=== PATIENT | female | born 1935 | race Hispanic/Latino ===

== ENCOUNTER 2017-11-06 09:43 | Emergency (ER) | payer OTHER ==
--- NOTE | 2017-11-06 11:01 | RAD REPORT ---
EXAM DESCRIPTION: CT - Head C Spine Mpr Wo Con - 11/06/2017 10:42 am CLINICAL HISTORY: Head and neck injury status post fall. Head and neck pain COMPARISON: None. TECHNIQUE: Computed axial tomography of the head and cervical spine was obtained. Sagittal and coronal reconstruction was performed. All CT scans are performed using dose optimization technique as appropriate and may include automated exposure control or mA/KV adjustment according to patient size. FINDINGS: A large right parietal scalp hematoma is present without underlying skull fracture. An intracranial bleed is not seen. The ventricles are normal in caliber. An extra-axial fluid collect ion is not noted. The visualized right maxillary sinus is opacified. The mastoids are clear. A cervical fracture is not visualized. No dislocation is noted. Spondylosis of the mid and distal cer vical spine is noted. IMPRESSION: No acute intracranial abnormality is seen. A cervical fracture is not visualized. If the patient continues to have symptoms to suggest intracra nial /spinal cord pathology then MRI would be recommended
--- NOTE | 2017-11-06 11:18 | EDPHYS ---
Physician Documentation [facility] Name: Raya Coleman Age: 81 yrs Sex: Female : 1935 Arrival Date: 11/06/2017 Time: 09:46 Bed 26 Private MD: ED Physician Sae Bernabe HPI: 11/06 10:19 This 81 yrs old Female presents to ER via Ambulatory with complaints of Fall portillo Injury. 10:19 Details of fall: The patient fell from an upright position, while walking. Onset: The portillo symptoms/episode began/occurred just prior to arrival. Associated injuries: The patient sustained injury to the head. Severity of symptoms: At their worst the symptoms were mild, in the emergency department the symptoms are unchanged. The patient has not experienced similar symptoms in the past. Historical: - Allergies: 10:07 NSAIDS; sg - Home Meds: 10:07 acetaminophen 500 mg Oral tab 1 tab every 3 hours [Active]; amlodipine 10 mg tab 1 tab sg once daily [Active]; donepezil 10 mg oral tab 1 tab once daily [Active]; doxazosin 2 mg oral tab 1 tab once daily [Active]; Januvia 50 mg oral tab 1 tabs once daily for Type 2 Diabetes Mellitus [Active]; metoprolol tartrate 50 mg Oral tab 1 tab 2 times per day [Active]; Namenda oral oral [Active]; ramipril 10 mg Oral cap 1 cap once daily for Hypertension [Active]; tramadol 50 mg Oral tab 1 tab every 6 hours [Active]; Vitamin D Oral [Active]; - PMHx: 10:07 Alzheimers; Diabetes - NIDDM; Renal Disease; Hyperlipidemia; GERD; Hypertension; sg - Immunization history:: Adult Immunizations up to date. - Family history:: not pertinent. - Social history:: Smoking status: Patient/guardian denies using tobacco. - Ebola Screening: : Patient negative for fever greater than or equal to 101.5 degrees Fahrenheit, and additional compatible Ebola Virus Disease symptoms Patient denies exposure to infectious person Patient denies travel to an Ebola-affected area in the 21 days before illness onset No symptoms or risks identified at this time. ROS: 10:19 Constitutional: Negative for fever, chills, and weight loss, Eyes: Negative for injury, portillo pain, redness, and discharge, ENT: Negative for injury, pain, and discharge, Neck: Negative for injury, pain, and swelling, Cardiovascular: Negative for chest pain, palpitations, and edema, Respiratory: Negative for shortness of breath, cough, wheezing, and pleuritic chest pain, Abdomen/GI: Negative for abdominal pain, nausea, vomiting, diarrhea, and constipation, Back: Negative for injury and pain, : Negative for injury, bleeding, discharge, and swelling, MS/Extremity: Negative for injury and deformity, Skin: Negative for injury, rash, and discoloration, Psych: Negative for depression, anxiety, suicide ideation, homicidal ideation, and hallucinations, Allergy/Immunology: Negative for hives, rash, and allergies, Endocrine: Negative for neck swelling, polydipsia, polyuria, polyphagia, and marked weight changes, Hematologic/Lymphatic: Negative for swollen nodes, abnormal bleeding, and unusual bruising. 10:19 Neuro: Positive for headache. Exam: 10:19 Constitutional: This is a well developed, well nourished patient who is awake, alert, portillo and in no acute distress. Eyes: Pupils equal round and reactive to light, extra-ocular motions intact. Lids and lashes normal. Conjunctiva and sclera are non-icteric and not injected. Cornea within normal limits. Periorbital areas with no swelling, redness, or edema. ENT: Nares patent. No nasal discharge, no septal abnormalities noted. Tympanic membranes are normal and external auditory canals are clear. Oropharynx with no redness, swelling, or masses, exudates, or evidence of obstruction, uvula midline. Mucous membranes moist. Neck: Trachea midline, no thyromegaly or masses palpated, and no cervical lymphadenopathy. Supple, full range of motion without nuchal rigidity, or vertebral point tenderness. No Meningismus. Chest/axilla: Normal chest wall appearance and motion. Nontender with no deformity. No lesions are appreciated. Cardiovascular: Regular rate and rhythm with a normal S1 and S2. No gallops, murmurs, or rubs. Normal PMI, no JVD. No pulse deficits. Respiratory: Lungs have equal breath sounds bilaterally, clear to auscultation and percussion. No rales, rhonchi or wheezes noted. No increased work of breathing, no retractions or nasal flaring. Abdomen/GI: Soft, non-tender, with normal bowel sounds. No distension or tympany. No guarding or rebound. No evidence of tenderness throughout. Back: No spinal tenderness. No costovertebral tenderness. Full range of motion. Skin: Warm, dry with normal turgor. Normal color with no rashes, no lesions, and no evidence of cellulitis. MS/ Extremity: Pulses equal, no cyanosis. Neurovascular intact. Full, normal range of motion. Neuro: Awake and alert, GCS 15, oriented to person, place, time, and situation. Cranial nerves II-XII grossly intact. Motor strength 5/5 in all extremities. Sensory grossly intact. Cerebellar exam normal. Normal gait. Psych: Awake, alert, with orientation to person, place and time. Behavior, mood, and affect are within normal limits. 10:19 Head/face: Noted is hematoma, that is moderate, of the right occipital area. Vital Signs: 09:53 BP 166 / 82; Pulse 79; Resp 16; Temp 97.8; Pulse Ox 100% on R/A; Pain 6/10; sg [place] Coma Score: 09:53 Eye Response: spontaneous(4). Verbal Response: oriented(5). Motor Response: obeys sg commands(6). Total: 15. Trauma Score (Adult): 09:53 Eye Response: spontaneous(1); Verbal Response: oriented(1); Motor Response: obeys sg commands(2); Systolic BP: > 89 mm Hg(4); Respiratory Rate: 10 to 29 per min(4); Bruce Score: 15; Trauma Score: 12 MDM: 10:13 Patient medically screened. [facility] 10:21 Data reviewed: vital signs, nurses notes, radiologic studies, CT scan. [facility] 11/06 10:19 Order name: CT Head C Spine; Complete Time: 11:16 [facility] 11/06 10:19 Order name: Ice pack; Complete Time: 10:22 [facility] Administered Medications: No medications were administered Disposition: 11/06/17 11:17 Discharged to Home. Impression: Fall due to bumping against object, Superficial injury of head, Type 2 diabetes mellitus. - Condition is Stable. - Discharge Instructions: Head Injury, Adult, Hematoma, Hematoma, [id number]-xl-Mspa, Fall Prevention in the Home, Fall Prevention in the Home, [id number], Head Injury, Adult, Wqza-bg-Udpo. - Medication Reconciliation Form, Thank You Letter, Antibiotic Education, Prescription Opioid Use form. - Follow up: Private Physician; When: 2 - 3 days; Reason: Recheck today's complaints, Continuance of care, Re-evaluation by your physician. - Problem is new. - Symptoms have improved. Signatures: Dispatcher [employer] EDRigo Mera RN RN Sae Fu MD MD cha Williams, Irene, RN RN iw Corrections: (The following items were deleted from the chart) 11:18 11:17 11/06/2017 11:17 Discharged to Home. Impression: Fall due to bumping against portillo object; Superficial injury of head. Condition is Stable. Discharge Instructions: Head Injury, Adult, Hematoma, Hematoma, Very-iv-Gzrv, Fall Prevention in the Home, Fall Prevention in the Home, Htzx-rq-Eyvu, Head Injury, Adult, Euku-xq-Dbsg. Forms are Medication Reconciliation Form, Thank You Letter, Antibiotic Education, Prescription Opioid Use. Follow up: Private Physician; When: 2 - 3 days; Reason: Recheck today's complaints, Continuance of care, Re-evaluation by your physician. Problem is new. Symptoms have improved. [facility] 12:19 11:18 11/06/2017 11:17 Discharged to Home. Impression: Fall due to bumping against iw object; Superficial injury of head; Type 2 diabetes mellitus. Condition is Stable. Discharge Instructions: Head Injury, Adult, Hematoma, Hematoma, Xmla-iu-Oouk, Fall Prevention in the Home, Fall Prevention in the Home, Mwap-ig-Fwwb, Head Injury, Adult, Hkmn-so-Zzeo. Forms are Medication Reconciliation Form, Thank You Letter, Antibiotic Education, Prescription Opioid Use. Follow up: Private Physician; When: 2 - 3 days; Reason: Recheck today's complaints, Continuance of care, Re-evaluation by your physician. Problem is new. Symptoms have improved. portillo
--- NOTE | 2017-11-06 11:18 | ER ---
Nurse's Notes [facility] Name: Raya Coleman Age: 81 yrs Sex: Female : 1935 Arrival Date: 11/06/2017 Time: 09:46 Bed 26 Private MD: Diagnosis: Fall due to bumping against object;Superficial injury of head;Type 2 diabetes mellitus Presentation: 11/06 09:51 Presenting complaint: EMS states: pt was seated in her walker, pushing herself backward sg to move back inside the retirement, pt hit a crack in the sidewalk and was thrown backward hitting her head on the concrete, a hematoma is noted to the back of the pt head, pt witnessed fall, did not loose consciousness, denies dizzyness, N/V/D, reports pain to back of head. Care prior to arrival: Cervical collar in place. Placed on backboard. Mechanism of Injury: Fall out of chair. Trauma event details: Injury occurred in the [facility], Injury occurred: [facility], [place] Injury occurred: November 06, 2017. 09:51 Method Of Arrival: Ambulatory sg 09:51 Acuity: OUMAR 4 sg 12:18 Transition of care: patient was received from another setting of care (long-term care facility), [facility]. Onset of symptoms was November 06, 2017. Risk Assessment: Do you want to hurt yourself or someone else? Patient reports no desire to harm self or others. Initial Sepsis Screen: Does the patient meet any 2 criteria? No. Patient's initial sepsis screen is negative. Does the patient have a suspected source of infection? No. Patient's initial sepsis screen is negative. Triage Assessment: 12:19 General: Appears in no apparent distress. Behavior is calm, cooperative. iw Trauma Activation: Not Applicable Physician: ED Physician; Name: ; Notified At: ; Arrived At: Physician: General Surgeon; Name: ; Notified At: ; Arrived At: Physician: Radiology; Name: ; Notified At: ; Arrived At: Physician: Respiratory; Name: ; Notified At: ; Arrived At: Physician: Lab; Name: ; Notified At: ; Arrived At: Historical: - Allergies: 10:07 NSAIDS; sg - Home Meds: 10:07 acetaminophen 500 mg Oral tab 1 tab every 3 hours [Active]; amlodipine 10 mg tab 1 tab sg once daily [Active]; donepezil 10 mg oral tab 1 tab once daily [Active]; doxazosin 2 mg oral tab 1 tab once daily [Active]; Januvia 50 mg oral tab 1 tabs once daily for Type 2 Diabetes Mellitus [Active]; metoprolol tartrate 50 mg Oral tab 1 tab 2 times per day [Active]; Namenda oral oral [Active]; ramipril 10 mg Oral cap 1 cap once daily for Hypertension [Active]; tramadol 50 mg Oral tab 1 tab every 6 hours [Active]; Vitamin D Oral [Active]; - PMHx: 10:07 Alzheimers; Diabetes - NIDDM; Renal Disease; Hyperlipidemia; GERD; Hypertension; sg - Immunization history:: Adult Immunizations up to date. - Family history:: not pertinent. - Social history:: Smoking status: Patient/guardian denies using tobacco. - Ebola Screening: : Patient negative for fever greater than or equal to 101.5 degrees Fahrenheit, and additional compatible Ebola Virus Disease symptoms Patient denies exposure to infectious person Patient denies travel to an Ebola-affected area in the 21 days before illness onset No symptoms or risks identified at this time. Screenin:30 Abuse screen: Denies threats or abuse. Denies injuries from another. Nutritional iw screening: No deficits noted. Tuberculosis screening: No symptoms or risk factors identified. Fall Risk Fall in past 12 months (25 points). Assessment: 11:29 Reassessment: Patient appears in no apparent distress at this time. Patient and/or iw family updated on plan of care and expected duration. Pain level reassessed. Patient states feeling better. Patient states symptoms have improved. 11:32 Reassessment: report called to [facility], will arrange for iw transportation back to facility. Vital Signs: 09:53 BP 166 / 82; Pulse 79; Resp 16; Temp 97.8; Pulse Ox 100% on R/A; Pain 6/10; sg [place] Coma Score: 09:53 Eye Response: spontaneous(4). Verbal Response: oriented(5). Motor Response: obeys sg commands(6). Total: 15. Trauma Score (Adult): 09:53 Eye Response: spontaneous(1); Verbal Response: oriented(1); Motor Response: obeys sg commands(2); Systolic BP: > 89 mm Hg(4); Respiratory Rate: 10 to 29 per min(4); Bruce Score: 15; Trauma Score: 12 ED Course: 09:46 Patient arrived in ED. iw 09:51 Rigo Mills, RN is Primary Nurse. sg 09:53 Triage completed. sg 10:13 Sae Bernabe MD is Attending Physician. portillo 10:[address] via stretcher. sw 10:41 CT completed. Patient tolerated procedure well. Patient moved to CT via stretcher. jg6 Patient moved back from CT. 10:42 CT Head C Spine In Process Unspecified. EDMS 11:30 No provider procedures requiring assistance completed. Patient did not have IV access iw during this emergency room visit. 11:31 Patient has correct armband on for positive identification. iw Administered Medications: No medications were administered Intake: 09:53 PO: 0ml; Total: 0ml. sg Outcome: 11:17 Discharge ordered by . portillo 12:18 Discharged to retirement. Report called to [place] Transfer form completed. iw 12:18 Condition: good 12:18 Discharge instructions given to family, retirement, senior scrum master, Instructed on discharge instructions, follow up and referral plans. Demonstrated understanding of instructions, follow-up care. 12:19 Patient left the ED. iw Signatures: Dispatcher [employer] EDRigo Mera, Sae Hernandez RN, MD MD cha Williams, Irene RN RN Sadaf Chang Jessica [email or web address] Corrections: (The following items were deleted from the chart) 09:54 09:51 Care prior to arrival: None. sg sg
[2017-11-06 12:24] VITALS: BP 166/82; TEMP 97.8; O2SAT 100
== END 2017-11-06 12:19 | disposition home or self-care (01) ==
LOC: ER 09:43
DX: S00.90XA Unspecified superficial injury of unspecified part of head, initial encounter (principal); E11.9 Type 2 diabetes mellitus without complications; W18.00XA Striking against unspecified object with subsequent fall, initial encounter; Y93.01 Activity, walking, marching and hiking; Y92.9 Unspecified place or not applicable; Z88.6 Allergy status to analgesic agent; Z79.4 Long term (current) use of insulin; I10 Essential (primary) hypertension; E78.5 Hyperlipidemia, unspecified; N28.9 Disorder of kidney and ureter, unspecified; G30.9 Alzheimer's disease, unspecified; F02.80 Dementia in other diseases classified elsewhere, unspecified severity, without behavioral disturbance, psychotic disturbance, mood disturbance, and anxiety
CPT/HCPCS: 70450; 72125; 99284

== ENCOUNTER 2018-03-01 16:54 | Inpatient (IN) | payer OTHER ==
[2018-03-01] MEDS: LEVALBUTEROL 0.63 MG/3 ML NEB NEB PRN ×3 (17:43→23:00)
--- NOTE | 2018-03-01 17:51 | P.HP ---
Certification for Inpatient Patient admitted to: Inpatient With expected LOS: >2 Midnights Patient will require the following post-hospital care: Prison Practitioner: I am a practitioner with admitting privileges, knowledge of patient current condition, hospital course, and medical plan of care. Services: Services provided to patient in accordance with Admission requirements found in Title 42 Section 412.3 of the Code of Federal Regulations Patient History Date of Service: 03/01/18 Primary Care Provider: Dameon Reason for admission: Bronchitis History of Present Illness: Patient is a resident of [place]. She has a history of dementia. The patient has been having a cough for a week. She has post nasal drip and non productive cough. She has a minimal basal infiltrate 2 days ago. Was treating her with decongestants and breathing treatments. She worsened. Family wanted her to go the ER. However we directed admitted her. She is maintaining her oxygen level. However is using accessory muscles. States she is now bringing up sputum Allergies No Known Allergies Allergy (Unverified 06/17/11 12:33) Home Medications: Amlodipine Besylate 10 mg PO DAILY 06/17/11 Clonazepam [Klonopin] 0.5 mg PO PRN PRN 06/17/11 Divalproex [Depakote Sprinkle] 125 mg PO BID 06/17/11 Donepezil HCl 10 mg PO DAILY 06/17/11 Fexofenadine HCl [Laura Allergy] 180 mg PO DAILY 06/17/11 Gemfibrozil 600 mg PO BID 06/17/11 Gemfibrozil 600 mg PO DAILY 06/17/11 Memantine HCl [Namenda] 10 mg PO BID 06/17/11 Potassium Chloride [Klor-Con] 20 meq PO DAILY 06/17/11 - Past Medical/Surgical History Diabetic: No - Social History Alcohol use: No CD- Drugs: No Caffeine use: No Review of Systems Respiratory: Cough, SOB with Excertion, Pleuritic Pain Physical Examination - Physical Exam General: Alert, Acute distress HEENT: Atraumatic, PERRLA, Mucous membr. moist/pink, EOMI, Sclerae nonicteric Neck: Supple, 2+ carotid pulse no bruit, No LAD, Without JVD or thyroid abnormality Respiratory: Diminished, Expiratory wheezes Cardiovascular: Regular rate/rhythm, Normal S1 S2 Gastrointestinal: Normal bowel sounds, No tenderness Musculoskeletal: No tenderness Integumentary: No rashes Neurological: Normal gait, Normal speech, Normal strength at 5/5 x4 extr, Normal tone, Normal affect Lymphatics: No axilla or inguinal lymphadenopathy Assessment and Plan - Problems (Diagnosis) (1) Acute bronchitis Current Visit: Yes Status: Acute Plan: will check a chest xray and blood cultures. She is currently afebrile. Will start her on steroids and breathing treatments. Check cxr, procalcitionin and blood cultures. We can decide to continue or stop levaquin Qualifiers: Bronchitis organism: unspecified organism Qualified Code(s): J20.9 - Acute bronchitis, unspecified (2) Dementia Current Visit: Yes Status: Acute Plan: Patient is able to converse and perform all her adl's. Will keep her on fall precautions. Consult PT in the morning Qualifiers: Dementia type: Alzheimer's disease (3) HTN (hypertension) Current Visit: Yes Status: Acute Plan: restart her amlodipine in the morning Discharge Plan: Residential Plan to discharge in: 48 Hours - Advance Directives Does patient have a Living Will: No Does patient have a Durable POA for Healthcare: No - Code Status/Comfort Care Code Status Assessed: Yes Code Status: Full Code Physician Review: Patient Assessed, Agree with Above Assessment and Plan Critical Care: No Time Spent Managing Pts Care (In Minutes): 50
[2018-03-01] MEDS: METHYLPREDNISOLONE 40 MG INJ IV SCH (17:53)
[2018-03-01] MEDS: NA CHLORIDE 0.9% 1,000 ML IV SCH (18:07)
[2018-03-01] MEDS: Levofloxacin500mg IV 500 MG/100 ML BAG IV SCH (18:10)
[2018-03-01] MEDS ORDERED: LORazepam 2 MG/ML VIAL IV PRN ×2 (18:15→18:28)
[2018-03-01] MEDS ORDERED: ACETYLCYST 20% 4 ML VIAL IH SCH (18:30)
[2018-03-01 18:31] LABS: Potassium 4.6 mmol/L (3.5-5.1)
[2018-03-01 18:54] LABS: Troponin I 39.7 ng/mL (0.0-0.045)
[2018-03-01] MEDS ORDERED: PNEUMOCOCCAL VACCINE 0.5 ML IMVAC ONE (19:00)
[2018-03-01] MEDS ORDERED: D50W 25 GM/50 ML SYRINGE IV PRN (19:48)
[2018-03-01] MEDS ORDERED: GLUCAGON 1 MG/VIAL IM PRN (19:48)
--- NOTE | 2018-03-01 20:28 | RAD REPORT ---
EXAM DESCRIPTION: Martín Single View03/01/2018 8:22 pm CLINICAL HISTORY: Chest pain COMPARISON: 2011 FINDINGS: [id number] bilateral pulmonary opacities are present. The heart is mildly enlarged IMPRESSION: CHF
[2018-03-01 20:42] LABS: Absolute Lymphocytes (CBC) 0.2 K/uL (0.7-4.9); Absolute Monocytes 0.5 K/uL (0.1-1.3); Absolute Neutrophil 10.4 K/uL (1.8-8.0); Basophils % 0.7 % (0-1.3); Eosinophils % 0.3 % (0-4.4); Hematocrit 27.1 % (36.0-45.0); Lymphocytes % 1.6 % (15.3-44.8); Monocytes % 4.3 % (3.3-12.3); RBC Red Blood Cell Count 3.04 M/uL (3.86-4.86)
[2018-03-01] MEDS ORDERED: ENOXAPARIN 30 MG/0.3 ML SQ SCH (21:00)
[2018-03-01] MEDS: ENOXAPARIN 80 MG/0.8 ML SQ SCH (22:13)
[2018-03-01] MEDS: INSULIN -REGULAR HUMAN 50 UNIT/0.5 ML ML SQ SCH (22:13)
[2018-03-01] MEDS: MEMANTINE HCL 10 MG TABLET PO SCH (22:14)
[2018-03-01] MEDS: DONEPEZIL HCL 5 MG TAB PO SCH (22:14)
[2018-03-01] MEDS: DIVALPROEX NA 125 MG CAP PO SCH (22:14)
[2018-03-01 22:19] LABS: Platelet Estimate ADEQ; Urine White Blood Cell Casts OK
[2018-03-01 22:20] LABS: Blood Morphology Comment NOT SEEN (NOT SEEN)
[2018-03-02] MEDS: METHYLPREDNISOLONE 40 MG INJ IV SCH ×3 (00:42→17:56)
[2018-03-02] MEDS: PANTOPRAZOLE 40MG TABLET PO SCH (05:42)
[2018-03-02] MEDS: NA CHLORIDE 0.9% 1,000 ML IV SCH (05:42)
[2018-03-02 06:04] LABS: Absolute Lymphocytes (CBC) 0.2 K/uL (0.7-4.9); Absolute Monocytes 0.1 K/uL (0.1-1.3); Basophils % 0.1 % (0-1.3); Hematocrit 25.9 % (36.0-45.0); Lymphocytes % 1.7 % (15.3-44.8); MPV 8.3 fL (7.6-11.3); Monocytes % 0.9 % (3.3-12.3); RBC Red Blood Cell Count 2.94 M/uL (3.86-4.86)
--- NOTE | 2018-03-02 07:01 | EKG ---
Test Date: 2018-03-01 Test Time: 17:35:25 [employer]ined Parts Quality Inspector: LOULOU MEASUREMENT RESULTS: Intervals: Rate: 104 NV: 130 QRSD: 82 QT: 330 QTc: 433 [place]: P: 48 NV: 130 QRS: 5 T: 65 INTERPRETIVE STATEMENTS: Sinus tachycardia Septal infarct, age undetermined Abnormal ECG Compared to ECG 06/17/2011 11:57:17 Myocardial infarct finding now present Sinus rhythm no longer present Incomplete right bundle-branch block no longer present Electronically Signed On 03-02-18 06:52:13 TIMBER ROBBER by Ehsan Bettencourt
[2018-03-02] MEDS: LEVALBUTEROL 0.63 MG/3 ML NEB NEB PRN ×2 (07:24→12:53)
[2018-03-02 07:58] LABS: Albumin 2.4 g/dL (3.4-5.0); Bilirubin Total 0.3 mg/dL (0.2-1.0); Potassium 4.8 mmol/L (3.5-5.1); Protein, Total 7.3 g/dL (6.4-8.2)
[2018-03-02 08:00] LABS: Troponin I 33.4 ng/mL (0.0-0.045)
[2018-03-02] MEDS ORDERED: GLUCAGON 1 MG/VIAL IM PRN (08:40)
[2018-03-02] MEDS ORDERED: D50W 25 GM/50 ML SYRINGE IV PRN (08:40)
[2018-03-02] MEDS ORDERED: INSULIN GLARGINE 100 UNITS/ML SQ SCH (08:41)
[2018-03-02] MEDS: INSULIN -REGULAR HUMAN 50 UNIT/0.5 ML ML SQ SCH ×4 (09:00→20:20)
[2018-03-02] MEDS: POTASSIUM CL SA 10 MEQ TAB PO SCH (09:00)
[2018-03-02] MEDS: ENOXAPARIN 80 MG/0.8 ML SQ SCH (10:10)
[2018-03-02] MEDS: ASPIRIN 325 MG TAB PO SCH (10:13)
[2018-03-02] MEDS: MEMANTINE HCL 10 MG TABLET PO SCH ×2 (10:13→20:18)
[2018-03-02] MEDS: DIVALPROEX NA 125 MG CAP PO SCH ×2 (10:13→20:19)
[2018-03-02] MEDS: AMLODIPINE 10 MG TAB PO SCH (10:13)
[2018-03-02] MEDS: ISOSORBIDE MONO SR 30 MG TAB PO SCH (10:13)
[2018-03-02] MEDS: INSULIN GLARGINE 100 UNITS/ML SQ SCH (10:33)
--- NOTE | 2018-03-02 10:47 | P.PN ---
Subjective Date of Service: 03/02/18 Primary Care Provider: Dameon Chief Complaint: Bronchitis Subjective: Improving Review of Systems Respiratory: Cough, SOB with Excertion Physical Examination - Vital Signs Temperature: 98.0 F Blood Pressure: 155/82 Pulse: 95 Respirations: 18 Pulse Ox (%): 96 - Physical Exam General: Alert, In no apparent distress HEENT: Atraumatic, PERRLA, EOMI Neck: Supple, JVD not distended Respiratory: Diminished, Expiratory wheezes Cardiovascular: Regular rate/rhythm, Normal S1 S2 Gastrointestinal: Normal bowel sounds, No tenderness Musculoskeletal: No tenderness Integumentary: No rashes Neurological: Normal speech, Normal tone, Normal affect Lymphatics: No axilla or inguinal lymphadenopathy - Studies Laboratory Data (last 24 hrs) 03/02/18 07:00: Sodium 144, Potassium 4.8, BUN 36 H, Creatinine 2.50 H, Glucose 235 H, Total Bilirubin 0.3, AST 41 H, ALT 31, Alkaline Phosphatase 96, Troponin I 33.40 H* D 03/02/18 05:40: Sodium Cancelled, Potassium Cancelled, BUN Cancelled, Creatinine Cancelled, Glucose Cancelled, Total Bilirubin Cancelled, AST Cancelled, ALT Cancelled, Alkaline Phosphatase Cancelled 03/02/18 05:40: WBC 10.3, Hgb 8.8 L, Hct 25.9 L, Plt Count 336 03/02/18 00:25: Troponin I 37.20 H* D 03/01/18 19:53: WBC 11.2 H, Hgb 8.9 L, Hct 27.1 L, Plt Count 342 03/01/18 17:54: Sodium 142, Potassium 4.6, BUN 33 H, Creatinine 2.60 H, Glucose 200 H, Troponin I 39.70 H* Microbiology Data (last 24 hrs): 03/01/18 20:26 Nasopharnyx Influenza Type A Antigen Screen - Final 03/01/18 20:26 Nasopharnyx Influenza Type B Antigen Screen - Final Assessment & Plan - Problems (Diagnosis) (1) Acute bronchitis Onset Date: 03/02/18 Current Visit: Yes Status: Acute Plan: will check a chest xray and blood cultures. She is currently afebrile. Will start her on steroids and breathing treatments. Check cxr, procalcitionin and blood cultures. We can decide to continue or stop levaquin Qualifiers: Bronchitis organism: unspecified organism Qualified Code(s): J20.9 - Acute bronchitis, unspecified (2) Dementia Onset Date: 03/02/18 Current Visit: Yes Status: Acute Plan: Patient is able to converse and perform all her adl's. Will keep her on fall precautions. Consult PT in the morning Qualifiers: Dementia type: Alzheimer's disease (3) HTN (hypertension) Onset Date: 03/02/18 Current Visit: Yes Status: Acute Plan: restart her amlodipine in the morning. better control. However will add imdur Qualifiers: Hypertension type: essential hypertension Qualified Code(s): I10 - Essential (primary) hypertension (4) Acute on chronic renal failure Current Visit: Yes Status: Acute Plan: Consult To Dr. Carreno Qualifiers: Chronic kidney disease stage: stage 4 (severe) (5) Diabetes 1.5, managed as type 2 Current Visit: Yes Status: Acute Plan: will keep her on insulin sliding scale. Add levemir 10units. will adjust as necessary Discharge Plan: Longterm Plan to discharge in: Greater than 2 days - Code Status/Comfort Care Code Status Assessed: No Code Status: Full Code Physician Review: Patient Assessed, Agree with Above Assessment and Plan Critical Care: No Time Spent Managing Pts Care (In Minutes): 40
--- NOTE | 2018-03-02 12:22 | CON ---
Date of Consultation: 03/02/2018 Reason For Consultation: Elevated troponin. History Of Present Illness: Ms. Coleman is an 82-year-old woman, has a history of hypertension, chron ic renal insufficiency, seizure disorders, hypertriglyceridemia, and Alzheimer's. She came in with c ough, PND, orthopnea that have been going on for approximately 10 days. She came in initially hypoxi c requiring BiPAP, now she is on oxygen nasal cannula with an O2 saturation of 99%. She has been sury ing and is receiving right now inhalers as well as steroid therapy, but no diuretics. She was noted to have a troponin of 39.7. Her white count was 11, her creatinine was 2.6, glucose was 244. Her est x-ray showed congestive heart failure. Past Medical History: Stated earlier. Allergies: NONE. Review of Systems: Negative. Social History: Negative. Family History: Noncontributory. Medications: At home include Norvasc, Klonopin, Depakote, potassium, Lopid, and Namenda. Physical Examination: General: She is very pleasant, alert and oriented x3. No acute distress. Still coughing, nonproduc tive. HEENT: Negative. Neck: Supple without any bruit, lymphadenopathy, or JVD. Chest: Revealed diffuse wheezing on inspiration and expiration as well as rales at the bases. Cardiac: Reveals tachycardia without any murmurs, gallops, or rubs. Abdomen: Benign. Extremities: Revealed no clubbing, cyanosis, or edema. Diagnostic Data: Stated earlier. Her EKG is nonspecific. Impression And Plan: 1.Elevated troponin, possibly secondary to hypoxia and renal insufficiency. 2.Renal insufficiency, stage IV. 3.Elevated white count. 4.Elevated blood glucose level. 5.Possible congestive heart failure. An echocardiogram is pending. I agree with her present regime n, although I will probably add low-dose diuretic to her regimen. 6.Her other problems include Alzheimer's, seizures, hypertriglyceridemia, and hypertension, all of w hich are stable at this point. We will see what the echocardiogram shows prior to making final decis ions. It would be reasonable to do an outpatient Lexiscan eventually. DEBBIE/RAYA Voice ID: [id number] Report ID: [id number]
[2018-03-02] MEDS: NACHLORIDE 0.45% 1,000 ML IV SCH (12:49)
[2018-03-02] MEDS ORDERED: MORPHINE 2 MG/ML SYR IV ONE (13:20)
--- NOTE | 2018-03-02 17:04 | CON ---
Date of Consultation: 03/02/2018 Reason For Consult: Chronic renal insufficiency. History Of Present Illness: Ms. Coleman is 82-year-old female with past medical history significant f or history of dementia, chronic CKD stage 4 to stage 5, hypertension, who presented to [facility] as a direct admission for ongoing pneumonia, productive cough, and she is being treated f or bronchitis. The patient has been seeing Dr. Pearce for evaluation of her chronic kidney disease and she was found to have some worsening of her renal failure recently secondary to uncontrolled hype rtension. We are being consulted for evaluation of her CKD stage 4. Past Medical History: Significant for history of chronic kidney disease stage 4, proteinuria seconda ry to kidney disease, hypokalemia, history of type 2 diabetes with CKD, hypertriglyceridemia, Alzheim er's dementia, vitamin D deficiency, GERD, chronic intermittent diarrhea. Past Surgical History: Significant for history of hysterectomy. Home Medications: Have been reviewed. Family History: Noncontributory at this time. Review of Systems: Positive for some weakness and lethargy. Otherwise, denies any other complaints. Her shortness of b reath is improving at this time and her lethargy is also improving slowly. Physical Examination: Vital signs: At this time are showing temperature of 98, pulse rate of 95, respiratory rate of 18, b lood pressure 155/82. General: She appears in no acute distress. HEENT: Atraumatic head. Lungs: Auscultation of the lungs revealed bilateral wheezes occasionally. No crackles were noted. Heart: Auscultation of the heart revealed regular rate and rhythm. Extremities: Did not reveal any evidence of edema. Abdomen: Soft and nontender. Laboratory Data: At this time, showing creatinine of 2.5, BUN of 36, sodium of 144. Upon review of past records, the patient seems to have a baseline creatinine of around 2.4 with upon blood work done from last month. Current Medications: Include amlodipine 10 mg a day, aspirin, Depakote 125 mg b.i.d., Aricept at bed time, Lovenox 70 mg subcutaneously daily, isosorbide, Levaquin every 24 hours, lorazepam, Solu-Medrol 40 mg every 8 hours, normal saline at 75 cc an hour, and a potassium chloride 20 mEq a day. Impression: 1.Chronic renal insufficiency, stage 4 secondary to underlying hypertension and type 2 diabetes. Th e patient's renal function seems to be at baseline at this time. We will go ahead and order some gen tle IV hydration with half NS to prevent further volume overload and monitor her renal function close ly. 2.Acute bronchitis/pneumonia. The patient is being treated with IV steroids as well as antibiotics. Renal steroids as tolerated as high-dose steroids can lead to worsening of her renal failure and BU N. We will continue to monitor at this time. 3.Elevated troponins. The patient is being evaluated by Cardiology. She is being treated conservat ively at this time because of her multiple issues and advanced age. 4.Underlying Alzheimer's dementia, currently stable. 5.Chronic anemia related to chronic kidney disease. Currently, hemoglobin and hematocrit are stable at this time. Monitor and we will order iron panel and may need IV iron with Epogen if it continues to drop. Plan: Overall, patient's renal function is at baseline at this time. We will continue gentle IV hyd ration. Monitor her renal function. We will order iron panel because she is being treated with IV s teroids for her bronchitis, which needs to be tapered down as tolerated quickly and she is being diamond wisam conservatively for her increased troponins as well. The plan will be discussed with Dr. Xiao in detail. Please do not hesitate to call us with any questions or concerns. VINCE/RAYA Voice ID: [id number] Report ID: [id number]
[2018-03-02] MEDS: Levofloxacin500mg IV 500 MG/100 ML BAG IV SCH (17:56)
--- NOTE | 2018-03-02 18:06 | EKG ---
Test Date: 2018-03-02 Test Time: 12:21:17 [employer]or: KAITLIN MEASUREMENT RESULTS: Intervals: Rate: 115 MI: 136 QRSD: 86 QT: 336 QTc: 464 [place]: P: 65 MI: 136 QRS: 10 T: 107 INTERPRETIVE STATEMENTS: Sinus tachycardia Septal infarct, age undetermined Marked ST abnormality, possible inferior subendocardial injury Abnormal ECG Compared to ECG 03/01/2018 17:35:25 ST (T wave) deviation now present Myocardial infarct finding still present Electronically Signed On 03-02-18 18:04:47 BUSINESS CENTER ATTENDANT by Ehsan Bettencourt
[2018-03-02] MEDS: DONEPEZIL HCL 5 MG TAB PO SCH (20:24)
[2018-03-03] MEDS: METHYLPREDNISOLONE 40 MG INJ IV SCH ×2 (00:06→08:30)
[2018-03-03] MEDS: NACHLORIDE 0.45% 1,000 ML IV SCH ×2 (05:54→08:34)
[2018-03-03] MEDS: PANTOPRAZOLE 40MG TABLET PO SCH (05:54)
[2018-03-03 05:57] LABS: Absolute Lymphocytes (CBC) 0.2 K/uL (0.7-4.9); Absolute Monocytes 0.3 K/uL (0.1-1.3); Absolute Neutrophil 13.1 K/uL (1.8-8.0); Basophils % 0.1 % (0-1.3); Hematocrit 25.7 % (36.0-45.0); Lymphocytes % 1.4 % (15.3-44.8); MPV 7.9 fL (7.6-11.3); RBC Red Blood Cell Count 2.91 M/uL (3.86-4.86)
[2018-03-03 06:30] LABS: Albumin 2.4 g/dL (3.4-5.0); Bilirubin Total 0.1 mg/dL (0.2-1.0); Potassium 4.9 mmol/L (3.5-5.1); Protein, Total 6.9 g/dL (6.4-8.2)
[2018-03-03] MEDS: INSULIN GLARGINE 100 UNITS/ML SQ SCH ×2 (08:00→12:55)
[2018-03-03] MEDS: AMLODIPINE 10 MG TAB PO SCH (08:30)
[2018-03-03] MEDS: ASPIRIN 325 MG TAB PO SCH (08:30)
[2018-03-03] MEDS: ENOXAPARIN 80 MG/0.8 ML SQ SCH (08:30)
[2018-03-03] MEDS: DIVALPROEX NA 125 MG CAP PO SCH ×2 (08:30→21:29)
[2018-03-03] MEDS: ISOSORBIDE MONO SR 30 MG TAB PO SCH (08:31)
[2018-03-03] MEDS: MEMANTINE HCL 10 MG TABLET PO SCH ×2 (08:32→21:29)
[2018-03-03] MEDS: POTASSIUM CL SA 10 MEQ TAB PO SCH (08:32)
[2018-03-03] MEDS: INSULIN -REGULAR HUMAN 50 UNIT/0.5 ML ML SQ SCH ×4 (08:32→21:00)
--- NOTE | 2018-03-03 11:32 | P.PN ---
Subjective Date of Service: 03/03/18 Primary Care Provider: Dameon Chief Complaint: Bronchitis Subjective: Improving Review of Systems 10-point ROS is otherwise unremarkable Respiratory: SOB with Excertion (got short of breath when walking the hallways.) Physical Examination - Vital Signs Temperature: 97.0 F Blood Pressure: 176/81 Pulse: 118 Respirations: 20 Pulse Ox (%): 100 - Physical Exam General: Alert, In no apparent distress HEENT: Atraumatic, PERRLA, EOMI Neck: Supple, JVD not distended Respiratory: Clear to auscultation bilaterally, Normal air movement Cardiovascular: Regular rate/rhythm, Normal S1 S2 Gastrointestinal: Normal bowel sounds, No tenderness Musculoskeletal: No tenderness Integumentary: No rashes Neurological: Normal speech, Normal tone, Normal affect Lymphatics: No axilla or inguinal lymphadenopathy - Studies Laboratory Data (last 24 hrs) 03/03/18 05:17: Sodium 146 H, Potassium 4.9, BUN 50 H, Creatinine 2.53 H, Glucose 182 H, Total Bilirubin 0.1 L, AST 43 H, ALT 28, Alkaline Phosphatase 86 03/03/18 05:17: WBC 13.6 H D, Hgb 8.4 L, Hct 25.7 L, Plt Count 348 03/02/18 12:05: Troponin I 28.00 H* D Assessment & Plan - Problems (Diagnosis) (1) Acute on chronic renal failure Current Visit: Yes Status: Acute Plan: not much improvement today. Will work on improving blood pressure and sugar. continue fluids as per Dr. Carreno Qualifiers: Chronic kidney disease stage: stage 4 (severe) (2) Acute bronchitis Onset Date: 03/02/18 Current Visit: Yes Status: Acute Plan: will check a chest xray and blood cultures. She is currently afebrile. Will start her on steroids and breathing treatments. Check cxr, procalcitionin and blood cultures. We can decide to continue or stop levaquin Qualifiers: Bronchitis organism: unspecified organism Qualified Code(s): J20.9 - Acute bronchitis, unspecified (3) Dementia Onset Date: 03/02/18 Current Visit: Yes Status: Acute Plan: Patient is able to converse and perform all her adl's. Will keep her on fall precautions. Consult PT in the morning Qualifiers: Dementia type: Alzheimer's disease (4) HTN (hypertension) Onset Date: 03/02/18 Current Visit: Yes Status: Acute Plan: restart her amlodipine in the morning. better control. However will add imdur Qualifiers: Hypertension type: essential hypertension Qualified Code(s): I10 - Essential (primary) hypertension (5) Diabetes 1.5, managed as type 2 Current Visit: Yes Status: Acute Plan: will keep her on insulin sliding scale. Add levemir 10units. will adjust as necessary Discharge Plan: Assisted Plan to discharge in: 48 Hours - Code Status/Comfort Care Code Status Assessed: No Code Status: Full Code Physician Review: Patient Assessed, Agree with Above Assessment and Plan Critical Care: No Time Spent Managing Pts Care (In Minutes): 25
[2018-03-03] MEDS: predniSONE 10 MG TAB PO SCH ×2 (12:53→21:29)
[2018-03-03] MEDS: ISOSORBIDE MONO SR 60 MG TAB PO SCH (12:53)
[2018-03-03] MEDS ORDERED: Levofloxacin 250mg IV 250 MG/50 ML BAG IV SCH (15:00)
[2018-03-03] MEDS: DONEPEZIL HCL 5 MG TAB PO SCH (21:28)
[2018-03-04] MEDS: PANTOPRAZOLE 40MG TABLET PO SCH (05:38)
[2018-03-04] MEDS: NACHLORIDE 0.45% 1,000 ML IV SCH (05:38)
[2018-03-04 05:52] LABS: Absolute Lymphocytes (CBC) 0.2 K/uL (0.7-4.9); Absolute Monocytes 0.6 K/uL (0.1-1.3); Hematocrit 25.5 % (36.0-45.0); Lymphocytes % 1.6 % (15.3-44.8); MPV 8.1 fL (7.6-11.3); Monocytes % 4.5 % (3.3-12.3); RBC Red Blood Cell Count 2.94 M/uL (3.86-4.86)
[2018-03-04 06:11] LABS: Albumin 2.5 g/dL (3.4-5.0); Bilirubin Total 0.2 mg/dL (0.2-1.0); Protein, Total 6.8 g/dL (6.4-8.2)
[2018-03-04 06:19] LABS: Blood Morphology Comment NOT SEEN (NOT SEEN); Platelet Estimate ADEQ; Polychromasia 1+; Urine White Blood Cell Casts OK
[2018-03-04] MEDS: INSULIN -REGULAR HUMAN 50 UNIT/0.5 ML ML SQ SCH ×4 (07:30→21:00)
[2018-03-04] MEDS: ISOSORBIDE MONO SR 60 MG TAB PO SCH (08:48)
[2018-03-04] MEDS: DIVALPROEX NA 125 MG CAP PO SCH ×2 (08:50→20:53)
[2018-03-04] MEDS: predniSONE 10 MG TAB PO SCH (08:51)
[2018-03-04] MEDS: AMLODIPINE 10 MG TAB PO SCH (08:51)
[2018-03-04] MEDS: ENOXAPARIN 80 MG/0.8 ML SQ SCH (08:51)
[2018-03-04] MEDS: MEMANTINE HCL 10 MG TABLET PO SCH ×2 (08:51→20:53)
[2018-03-04] MEDS: ASPIRIN 325 MG TAB PO SCH (08:52)
[2018-03-04] MEDS: INSULIN GLARGINE 100 UNITS/ML SQ SCH (08:52)
[2018-03-04] MEDS: POTASSIUM CL SA 10 MEQ TAB PO SCH (08:58)
[2018-03-04] MEDS ORDERED: LEVALBUTEROL 0.63 MG/3 ML NEB NEB PRN (12:36)
--- NOTE | 2018-03-04 12:36 | P.PN ---
Subjective Date of Service: 03/04/18 Primary Care Provider: Dameon Chief Complaint: Bronchitis Subjective: Worsening (Had some shortness of breath last night) Review of Systems 10-point ROS is otherwise unremarkable Respiratory: SOB with Excertion Physical Examination - Vital Signs Temperature: 97.5 F Blood Pressure: 173/84 Pulse: 99 Respirations: 18 Pulse Ox (%): 97 - Physical Exam General: Alert, In no apparent distress HEENT: Atraumatic, PERRLA, EOMI Neck: Supple, JVD not distended Respiratory: Clear to auscultation bilaterally, Normal air movement, Expiratory wheezes Cardiovascular: Regular rate/rhythm, Normal S1 S2 Gastrointestinal: Normal bowel sounds, No tenderness Musculoskeletal: No tenderness Integumentary: No rashes Neurological: Normal speech, Normal tone, Normal affect Lymphatics: No axilla or inguinal lymphadenopathy - Studies Laboratory Data (last 24 hrs) 03/04/18 05:35: Sodium 144, Potassium 5.0, BUN 54 H, Creatinine 2.47 H, Glucose 126 H, Total Bilirubin 0.2, AST 37, ALT 39, Alkaline Phosphatase 86 03/04/18 05:35: WBC 12.8 H, Hgb 8.7 L, Hct 25.5 L, Plt Count 387 Assessment & Plan - Problems (Diagnosis) (1) Acute on chronic renal failure Current Visit: Yes Status: Acute Plan: not much improvement today. Will work on improving blood pressure and sugar. continue fluids, will add ferrous gluconate as per Dr. Shabazz Qualifiers: Chronic kidney disease stage: stage 4 (severe) (2) Acute bronchitis Onset Date: 03/02/18 Current Visit: Yes Status: Acute Plan: will check a chest xray and blood cultures. She is currently afebrile. Will increase her prednisone to 20mg bidand breathing treatments. infiltrates on chest xrays Qualifiers: Bronchitis organism: unspecified organism Qualified Code(s): J20.9 - Acute bronchitis, unspecified (3) Dementia Onset Date: 03/02/18 Current Visit: Yes Status: Acute Plan: Patient is able to converse and perform all her adl's. Will keep her on fall precautions. Consult PT in the morning Qualifiers: Dementia type: Alzheimer's disease (4) HTN (hypertension) Onset Date: 03/02/18 Current Visit: Yes Status: Acute Plan: restart her amlodipine in the morning. better control. However will add imdur Qualifiers: Hypertension type: essential hypertension Qualified Code(s): I10 - Essential (primary) hypertension (5) Diabetes 1.5, managed as type 2 Current Visit: Yes Status: Acute Plan: will keep her on insulin sliding scale. Add levemir 10units. will adjust as necessary Discharge Plan: Home Plan to discharge in: 24 Hours - Code Status/Comfort Care Code Status Assessed: No Code Status: Full Code Physician Review: Patient Assessed, Agree with Above Assessment and Plan Critical Care: No Time Spent Managing Pts Care (In Minutes): 25
[2018-03-04] MEDS: FERROUS GLUCONATE 300 MG TAB PO SCH (16:28)
[2018-03-04] MEDS: predniSONE 20 MG TAB PO SCH (20:53)
[2018-03-04] MEDS: DONEPEZIL HCL 5 MG TAB PO SCH (20:53)
[2018-03-05] MEDS: NACHLORIDE 0.45% 1,000 ML IV SCH (00:02)
--- NOTE | 2018-03-05 02:40 | PN ---
Ms. Coleman had been admitted with what sounds like a bronchitis and congestive heart failure combinat ion. Echocardiogram that was done on 03/02/2018, showed decreased left ventricular compliance, left ventricular hypertrophy with normal ejection fraction. She has improved drastically on her breathing treatment. I think Lasix should be part of her regimen as well. She can go home whenever it is oka y with Dr. Xiao. I think doing an outpatient Lexiscan would be reasonable. DEBBIE/RAYA Voice ID: [id number] Report ID: [id number]
[2018-03-05 04:25] VITALS: BMI 25.9
[2018-03-05] MEDS: PANTOPRAZOLE 40MG TABLET PO SCH (06:02)
[2018-03-05] MEDS: INSULIN -REGULAR HUMAN 50 UNIT/0.5 ML ML SQ SCH ×2 (07:30→11:30)
[2018-03-05] MEDS: POTASSIUM CL SA 10 MEQ TAB PO SCH (08:12)
--- NOTE | 2018-03-05 08:39 | ECHO ---
HEIGHT: 5 ft 3 in WEIGHT: 146 lb 1.6 oz DATE OF STUDY: 03/02/[address]: Kunal Xiao MD 2-DIMENSIONAL: YES M.MODE: YES DOPPLER: YES COLOR FLOW: YES TDS: PORTABLE: DEFINITY: BUBBLE STUDY: DIAGNOSIS: ELEVATED TROPONIN CARDIAC HISTORY: CATHERIZATION: NO SURGERY: NO PROSTHETIC VALVE: NO PACEMAKER: NO MEASUREMENTS (cm) DIASTOLIC (NORMALS) SYSTOLIC (NORMALS) IVSd 1.1 (0.6-1.2) LA Diam 4.1 (1.9-4.0) LVEF 75% LVIDd 3.9 (3.5-5.7) LVIDs 2.2 (2.0-3.5) %FS 43% LVPWd 1.6 (0.6-1.2) Ao Diam 2.2 (2.0-3.7) 2 DIMENSIONAL ASSESSMENT: RIGHT ATRIUM: NORMAL LEFT ATRIUM: DILATED RIGHT VENTRICLE: NORMAL LEFT VENTRICLE: LEFT VENTRICULAR HYPERTROPHY TRICUSPID VALVE: NORMAL MITRAL VALVE: NORMAL PULMONIC VALVE: NORMAL AORTIC VALVE: NORMAL PERICARDIAL EFFUSION: NONE AORTIC ROOT: NORMAL LEFT VENTRICULAR WALL MOTION: NORMAL DOPPLER/COLOR FLOW: TRACE AORTIC AND MITRAL REGURGITATION. COMMENTS: TRACE AORTIC AND MITRAL REGURGITATION. LEFT VENTRICULAR HYPERTROPHY. DECREASED LEFT VENTRICULAR COMPLIANCE. NORMAL EJECTION FRACTION. TECHNOLOGIST: NICOLE AMADOR
[2018-03-05] MEDS: ENOXAPARIN 80 MG/0.8 ML SQ SCH (08:41)
[2018-03-05] MEDS: DIVALPROEX NA 125 MG CAP PO SCH (08:41)
[2018-03-05] MEDS: ASPIRIN 325 MG TAB PO SCH (08:42)
[2018-03-05] MEDS: MEMANTINE HCL 10 MG TABLET PO SCH (08:42)
[2018-03-05] MEDS: predniSONE 20 MG TAB PO SCH (08:42)
[2018-03-05] MEDS: INSULIN GLARGINE 100 UNITS/ML SQ SCH (08:42)
[2018-03-05] MEDS: ISOSORBIDE MONO SR 60 MG TAB PO SCH (08:42)
[2018-03-05] MEDS: FERROUS GLUCONATE 300 MG TAB PO SCH (08:45)
[2018-03-05] MEDS: AMLODIPINE 10 MG TAB PO SCH (09:00)
--- NOTE | 2018-03-05 11:07 | P.DS ---
Admission Date: 03/01/18 Discharge Date: 03/05/18 Primary Care Provider: Dameon Disposition: TRANSFER TO [facility] Discharge Condition: FAIR Reason for Admission: Bronchitis - Problems (1) Acute on chronic renal failure Current Visit: Yes Status: Acute Qualifiers: Chronic kidney disease stage: stage 4 (severe) (2) Acute bronchitis Onset Date: 03/02/18 Current Visit: Yes Status: Acute Qualifiers: Bronchitis organism: unspecified organism Qualified Code(s): J20.9 - Acute bronchitis, unspecified (3) Dementia Onset Date: 03/02/18 Current Visit: Yes Status: Acute Qualifiers: Dementia type: Alzheimer's disease (4) HTN (hypertension) Onset Date: 03/02/18 Current Visit: Yes Status: Acute Qualifiers: Hypertension type: essential hypertension Qualified Code(s): I10 - Essential (primary) hypertension (5) Diabetes 1.5, managed as type 2 Current Visit: Yes Status: Acute Brief History of Present Illness: Patient is a resident of [place]. She has a history of dementia. The patient has been having a cough for a week. She has post nasal drip and non productive cough. She has a minimal basal infiltrate 2 days ago. Was treating her with decongestants and breathing treatments. She worsened. Family wanted her to go the ER. However we directed admitted her. She is maintaining her oxygen level. However is using accessory muscles. States she is now bringing up sputum Hospital Course: Patient was admitted, Did better on cpap. She had some fluid overload. Elevated ef. However I believe this is due to the bronchitis. Rather than true chf. She is doing better on steroids. Walked 1 round on the floor today with PT. She was seen by Nephrology due to her chronic stage 4 chronic kidney disease. Will discharge her on antibiotics. Start oral iron. Have PT in [place]. Vital Signs/Physical Exam: Temp Pulse Resp BP Pulse Ox 97.4 F 98 H 18 143/75 H 96 03/05/18 08:00 03/05/18 09:00 03/05/18 08:00 03/05/18 09:00 03/05/18 08:00 General: Alert, In no apparent distress HEENT: Atraumatic, PERRLA, EOMI Neck: Supple, JVD not distended Respiratory: Clear to auscultation bilaterally, Normal air movement Cardiovascular: Regular rate/rhythm, Normal S1 S2 Gastrointestinal: Normal bowel sounds, No tenderness Musculoskeletal: No tenderness Integumentary: No rashes Neurological: Normal speech, Normal tone, Normal affect Lymphatics: No axilla or inguinal lymphadenopathy Laboratory Data at Discharge: WBC 12.8 K/uL (4.3-10.9) H 03/04/18 05:35 Hgb 8.7 g/dL (12.0-15.0) L 03/04/18 05:35 Hct 25.5 % (36.0-45.0) L 03/04/18 05:35 Plt Count 387 K/uL (152-406) 03/04/18 05:35 Sodium 144 mmol/L (136-145) 03/04/18 05:35 Potassium 5.0 mmol/L (3.5-5.1) 03/04/18 05:35 BUN 54 mg/dL (7-18) H 03/04/18 05:35 Creatinine 2.47 mg/dL (0.55-1.3) H 03/04/18 05:35 Glucose 126 mg/dL (74-106) H 03/04/18 05:35 Total Bilirubin 0.2 mg/dL (0.2-1.0) 03/04/18 05:35 AST 37 U/L (15-37) 03/04/18 05:35 ALT 39 U/L (12-78) 03/04/18 05:35 Alkaline Phosphatase 86 U/L (45-117) 03/04/18 05:35 Troponin I 28.00 ng/mL (0.0-0.045) H* D 03/02/18 12:05 Home Medications: Amlodipine Besylate 10 mg PO DAILY 06/17/11 Clonazepam [Klonopin] 0.5 mg PO PRN PRN 06/17/11 Divalproex [Depakote Sprinkle] 125 mg PO BID 06/17/11 Donepezil HCl 10 mg PO DAILY 06/17/11 Fexofenadine HCl [Laura Allergy] 180 mg PO DAILY 06/17/11 Gemfibrozil 600 mg PO BID 06/17/11 Gemfibrozil 600 mg PO DAILY 06/17/11 Memantine HCl [Namenda] 10 mg PO BID 04/06/12 Potassium Chloride [Klor-Con] 20 meq PO DAILY 06/17/11 Ferrous Gluconate 324 mg PO BID 30 Days #60 tablet 03/05/18 Levofloxacin [Levaquin] 500 mg PO DAILY 4 Days #4 tablet 03/05/18 Prednisone [Sterapred Ds] 10 mg PO BID #21 tab.ds.pk 03/05/18 New Medications: Ferrous Gluconate 324 mg PO BID 30 Days #60 tablet Levofloxacin [Levaquin] 500 mg PO DAILY 4 Days #4 tablet Prednisone [Sterapred Ds] 10 mg PO BID #21 tab.ds.pk Diet: Renal Activity: Ad michael Time spent managing pt's care (in minutes): 30
[2018-03-05 11:12] VITALS: O2SAT 96
[2018-03-05 12:04] LABS: Potassium 5.4 mmol/L (3.5-5.1)
[2018-03-05] MEDS ORDERED: HYDRALAZINE HCL 20 MG/ML VIAL IV ONE (12:05)
[2018-03-05 14:46] VITALS: BP 206/89; TEMP 97.3
--- NOTE | 2018-03-05 18:40 | PN ---
Date of Progress Note: 03/05/2018 NEPHROLOGY PROGRESS NOTE Subjective: The patient was seen and examined. Feels much better. Denies any complaints. No overn ight events were noted. Physical Examination: Vital Signs: Have been reviewed and are stable. General: She appears in no acute distress. HEENT: Atraumatic head. Lungs: Clear. Abdomen: Soft. Extremities: Without any evidence of edema. Laboratory Data: Showing sodium of 144, potassium of 5.4, creatinine improved to 2.1, significantly from 2.6 at the time of admission, BUN was 45. CBC showing stable hemoglobin, hematocrit, and platel et count. Current Medications: Have been reviewed. Impression: 1.Chronic renal insufficiency, currently with improving renal function with an acute component. 2.Mild hyperkalemia. We will discontinue potassium supplementation. 3.Acute bronchitis/pneumonia, improving. 4.Uncontrolled hypertension, currently stable. 5.Underlying dementia. 6.Type 2 diabetes, on insulin. Plan: The patient's renal function is significantly better at this time. IV fluids can be discontin ued. Renal function has significantly improved. She can be discharged off the potassium supplements . Plan was discussed with the patient in detail. We will follow up with her as an outpatient and monitor her renal function closely. VV/MODL Voice ID: [id number] Report ID: [id number]
== END 2018-03-05 15:46 | DRG 202 ==
LOC: 2ND 17:10
PROVIDERS: ADMIT Internal Medicine; ATTEND Internal Medicine
PROC: 5A09357 Assistance with Respiratory Ventilation, Less than 24 Consecutive Hours, Continuous Positive Airway Pressure (ICD-10-PCS; principal; 2018-03-01)
DX: J20.9 Acute bronchitis, unspecified (principal); N18.4 Chronic kidney disease, stage 4 (severe); N17.9 Acute kidney failure, unspecified; G30.9 Alzheimer's disease, unspecified; F02.80 Dementia in other diseases classified elsewhere, unspecified severity, without behavioral disturbance, psychotic disturbance, mood disturbance, and anxiety; I12.9 Hypertensive chronic kidney disease with stage 1 through stage 4 chronic kidney disease, or unspecified chronic kidney disease; E13.22 Other specified diabetes mellitus with diabetic chronic kidney disease; G40.909 Epilepsy, unspecified, not intractable, without status epilepticus; E78.1 Pure hyperglyceridemia; R09.02 Hypoxemia; R80.9 Proteinuria, unspecified; E87.6 Hypokalemia; E11.22 Type 2 diabetes mellitus with diabetic chronic kidney disease; E55.9 Vitamin D deficiency, unspecified; D63.1 Anemia in chronic kidney disease; R79.89 Other specified abnormal findings of blood chemistry
CPT/HCPCS: 36415; 71045; 80048; 80053; 82962; 83540; 84145; 84466; 84484; 85025; 87040; 87804; 93005; 93306; 94640; 94660; 97116; 97530; J0360; J1650; J2270; J2920; J7030; J7512

== ENCOUNTER 2020-04-07 13:41 | Emergency (ER) | payer OTHER ==
[2020-04-07 14:30] LABS: Absolute Lymphocytes (CBC) 0.4 K/uL (0.7-4.9); Hematocrit 24.5 % (36.0-45.0); Lymphocytes % 6.5 % (15.3-44.8); MPV 8.7 fL (7.6-11.3); RBC Red Blood Cell Count 2.59 M/uL (3.86-4.86)
[2020-04-07 15:09] LABS: ALT/SGPT 14 U/L (12-78); AST/SGOT 14 U/L (15-37); Albumin 2.7 g/dL (3.4-5.0); Alkaline Phosphatase 185 U/L (45-117); BUN Blood Urea Nitrogen 71 mg/dL (7-18); Bicarbonate 21 mmol/L (21-32); Bilirubin Direct < 0.1 mg/dL (0-0.2); Bilirubin Total 0.2 mg/dL (0.2-1.0); Glucose Level 183 mg/dL (74-106); Magnesium 2.2 mg/dL (1.8-2.4); NT PRO-BNP 6203 pg/mL (<450); Sodium Level 137 mmol/L (136-145); Troponin (Emerg Dept Use Only) 0.03 ng/mL (0.0-0.045)
[2020-04-07] MEDS ORDERED: MORPHINE 2 MG/ML SYR ONE (15:15)
[2020-04-07] MEDS ORDERED: ONDANSETRON 4 MG/2 ML VIAL ONE (15:15)
--- NOTE | 2020-04-07 15:30 | RAD REPORT ---
EXAM DESCRIPTION: USExtremity Venous Uni Ltd04/07/2020 3:20 pm CLINICAL HISTORY: left leg pain COMPARISON: None. FINDINGS: Left common femoral, superficial femoral, popliteal and posterior tibial veins are compre ssible and demonstrate augmentation. Doppler demonstrates good flow. IMPRESSION: No evidence of deep venous thrombosis involving the left lower extremity.
--- NOTE | 2020-04-07 15:34 | RAD REPORT ---
EXAM DESCRIPTION: US - Lower Extremity Artery Uni Ltd - 04/07/2020 3:20 pm CLINICAL HISTORY: Leg pain COMPARISON: None FINDINGS: Left common femoral, left superficial femoral, left popliteal, left posterior tibial and left dorsali s pedis arteries generally have monophasic waveforms Amplitude is diminished Marked calcified plaque is present within the left popliteal artery resulting in high-grade stenosis IMPRESSION: High-grade stenosis left popliteal artery Abnormal waveforms within the left common femoral artery may indicate iliac or arterial disease
--- NOTE | 2020-04-07 15:48 | ER ---
Nurse's Notes [facility] Name: Raya Coleman Age: 84 yrs Sex: Female : 1935 Arrival Date: 04/07/2020 Time: 13:42 Bed 20 Private MD: Diagnosis: Pain in left leg;Peripheral Artery Disease Presentation: 04/07 13:44 Chief complaint: Patient states: Left leg pain increased today. Known DVT L leg. ll1 Hospice patient, out of hospital DNR. Coronavirus screen: Client denies travel out of the [place] in the last 14 days. At this time, the client does not indicate any symptoms associated with coronavirus-19. Ebola Screen: Patient denies travel to an Ebola-affected area in the 21 days before illness onset. Initial Sepsis Screen:. Risk Assessment: Do you want to hurt yourself or someone else? Patient reports no desire to harm self or others. Onset of symptoms was April 07, 2020. 13:44 Method Of Arrival: EMS: [facility] 13:44 Acuity: OUMAR 3 ll1 13:50 Initial Sepsis Screen: Does the patient meet any 2 criteria? No. Patient's initial ll1 sepsis screen is negative. Does the patient have a suspected source of infection? Yes: Bone or joint infection. Historical: - Allergies: 13:43 NSAIDS; ll1 - PMHx: 13:43 Alzheimers; Diabetes - NIDDM; Renal Disease; Hypertension; Hyperlipidemia; GERD; ll1 - Immunization history:: Flu vaccine is up to date. - Social history:: Smoking status: Patient denies any tobacco usage or history of. Screenin:50 Abuse screen: Denies threats or abuse. Nutritional screening: No deficits noted. ll1 Tuberculosis screening: No symptoms or risk factors identified. Fall Risk Secondary diagnosis (15 points) Alzheimer's, IV access (20 points). Ambulatory Aid- Furniture (30 pts.). Gait- Impaired (20 pts.). Mental Status- Overestimates/Forgets Limitations (15 pts.). Total [place]ara Fall Scale indicates High Risk Score (45 or more points). Fall prevention measures have been instituted. Side Rails Up X 2 Placed Close to Nursing Station Frequent Obs/Assessments Occuring As available patient and family educated on Fall Prevention Program and Strategies. Assessment: 13:45 General: Appears in no apparent distress. Behavior is calm, cooperative, appropriate ll1 for age. Pain: Complains of pain in L leg Quality of pain is described as aching, Pain began 2-3 days ago. Is intermittent, episodic. Neuro: No deficits noted. Cardiovascular: No deficits noted. Respiratory: No deficits noted. Musculoskeletal: Circulation, motion, and sensation intact. Capillary refill < 3 seconds, Tenderness present in entire L leg. 14:45 Reassessment: No changes from previously documented assessment. Patient and/or family ll1 updated on plan of care and expected duration. Pain level reassessed. 15:45 Reassessment: No changes from previously documented assessment. Patient and/or family ll1 updated on plan of care and expected duration. Pain level reassessed. Vital Signs: 13:50 BP 152 / 66; Pulse 69; Resp 16; Temp 97.8; Pulse Ox 97% on R/A; Pain 6/10; ll1 ED Course: 13:42 Patient arrived in ED. ll1 13:43 Arm band placed on Patient placed in an exam room, on a stretcher. ll1 13:45 Triage completed. ll1 13:51 Leonora Fontanez, SUHAIL is Primary Nurse. ll1 13:51 Patient has correct armband on for positive identification. Bed in low position. Call ll1 light in reach. Side rails up X 1. Pulse ox on. NIBP on. 13:53 Darryn Sanabria PA is PHCP. m 13:53 Sae Bernabe MD is Attending Physician. jmm 14:15 Inserted saline lock: 22 gauge in right antecubital area, using aseptic technique. ll1 Blood collected. 15:20 US LE Artery Uni Ltd In Process Unspecified. EDMS 15:20 US Extremity Venous Unilateral Ltd In Process Unspecified. EDMS 15:45 Kunal Xiao MD is Referral Physician. jmm 16:32 No provider procedures requiring assistance completed. IV discontinued, intact, ll1 bleeding controlled, No redness/swelling at site. Pressure dressing applied. Administered Medications: 15:50 Drug: morphine 2 mg {Note: rass 0.} Route: IVP; Site: right antecubital; ll1 16:31 Follow up: Response: No adverse reaction; RASS: Alert and Calm (0) ll1 15:50 Drug: Zofran (Ondansetron) 4 mg Route: IVP; Site: right antecubital; 1 16:31 Follow up: Response: No adverse reaction; RASS: Alert and Calm (0) 1 Outcome: 15:46 Discharge ordered by MD. davey 16:31 Discharged to detention. Report called to nurse Raymon at [place] [id number] 16:31 Condition: stable 16:31 Discharge instructions given to patient, Instructed on discharge instructions, follow up and referral plans. medication usage, Demonstrated understanding of instructions, follow-up care, medications, Prescriptions given X 2. 16:58 Patient left the ED. 1 Signatures: Dispatcher [employer] EDMS Darryn Sanabria PA PA jmm Lewis, Lynsay, RN RN 1
--- NOTE | 2020-04-07 15:48 | EDPHYS ---
Physician Documentation [facility] Name: Raya Coleman Age: 84 yrs Sex: Female : 1935 Arrival Date: 04/07/2020 Time: 13:42 Bed 20 Private MD: ED Physician Sae Bernabe HPI: 04/07 13:44 This 84 yrs old Female presents to ER via EMS with complaints of Leg Pain. m 13:44 The patient presents with pain. Onset: The symptoms/episode began/occurred at an [facility] unknown time. Modifying factors: The symptoms are alleviated by nothing. the symptoms are aggravated by nothing. This is an 84 year old female with a history of alzheimers, DM, ESRD, HTN that presents to the ED with complaints of worsening left lower leg pain. US confirmed DVT on 04/01. Patient is currently taking 5 mg of warfarin. Denies abdominal pain or chest pain. . Historical: - Allergies: 13:43 NSAIDS; ll1 - PMHx: 13:43 Alzheimers; Diabetes - NIDDM; Renal Disease; Hypertension; Hyperlipidemia; GERD; ll1 - Immunization history:: Flu vaccine is up to date. - Social history:: Smoking status: Patient denies any tobacco usage or history of. ROS: 13:44 Constitutional: Negative for fever, chills, and weight loss, Cardiovascular: Negative jm for chest pain, palpitations, and edema, Respiratory: Negative for shortness of breath, cough, wheezing, and pleuritic chest pain. 13:44 MS/extremity: Positive for pain. 13:44 All other systems are negative. Exam: 13:44 Constitutional: This is a well developed, well nourished patient who is awake, alert, jmm and in no acute distress. Head/Face: atraumatic. Eyes: EOMI, no conjunctival erythema appreciated ENT: Moist Mucus Membranes Neck: Trachea midline, Supple Chest/axilla: Normal chest wall appearance and motion. Cardiovascular: Regular rate and rhythm. No edema appreciated Respiratory: Normal respirations, no respiratory distress appreciated Abdomen/GI: Non distended, soft Back: Normal ROM Skin: General appearance color normal 13:44 Musculoskeletal/extremity: left leg diffusely TTP, compartments are soft, warm, no edema appreciated. 13:44 Skin: Appearance: Color: normal in color. 13:44 Neuro: Orientation: is normal, at baseline. 13:44 Psych: Behavior/mood is pleasant, cooperative. Vital Signs: 13:50 BP 152 / 66; Pulse 69; Resp 16; Temp 97.8; Pulse Ox 97% on R/A; Pain 6/10; ll1 MDM: 14:04 Patient medically screened. [facility] 15:43 Data reviewed: vital signs, nurses notes. Counseling: I had a detailed discussion with radha the patient and/or guardian regarding: the historical points, exam findings, and any diagnostic results supporting the discharge/admit diagnosis, lab results, radiology results. ED course: Care discussed with Dr. Xiao. I discussed the patient's lab findings along with US results, advised to D/ C on cilostazol. Pain appears due to arterial disease, no obstruction on US. No DVT on US. . 04/07 14:11 Order name: Basic Metabolic Panel; Complete Time: 15:21 [facility] 04/07 14:11 Order name: CBC with Diff; Complete Time: 14:39 [facility] 04/07 14:11 Order name: LFT's; Complete Time: 15:21 [facility] 04/07 14:11 Order name: Magnesium; Complete Time: 15:21 [facility] 04/07 14:11 Order name: NT PRO-BNP; Complete Time: 15:21 [facility] 04/07 14:11 Order name: PT-INR; Complete Time: 16:21 [facility] 04/07 14:11 Order name: Troponin (emerg Dept Use Only); Complete Time: 15:21 [facility] 04/07 14:11 Order name: EKG; Complete Time: 14:12 [facility] 04/07 14:11 Order name: Cardiac monitoring; Complete Time: 14:29 [facility] 04/07 14:11 Order name: EKG - Nurse/Tech; Complete Time: 14:29 [facility] 04/07 14:30 Order name: US LE Artery Uni Ltd; Complete Time: 15:38 [facility] 04/07 14:30 Order name: US Extremity Venous Unilateral Ltd; Complete Time: 15:38 [facility] 04/07 14:11 Order name: IV Saline Lock; Complete Time: 14:14 [facility] 04/07 14:11 Order name: Labs collected and sent; Complete Time: 14:14 [facility] 04/07 14:11 Order name: O2 Per Protocol; Complete Time: 14:14 [facility] 04/07 14:11 Order name: O2 Sat Monitoring; Complete Time: 14:14 [facility] 04/07 15:25 Order name: Labs - recollect needed: recollect blue top; Complete Time: 15:50 bd Administered Medications: 15:50 Drug: morphine 2 mg {Note: rass 0.} Route: IVP; Site: right antecubital; ll1 16:31 Follow up: Response: No adverse reaction; RASS: Alert and Calm (0) ll1 15:50 Drug: Zofran (Ondansetron) 4 mg Route: IVP; Site: right antecubital; ll1 16:31 Follow up: Response: No adverse reaction; RASS: Alert and Calm (0) ll1 Disposition: 17:32 Co-signature as Attending Physician, Sae Bernabe MD I agree with the assessment and portillo plan of care. Disposition: 04/07/20 15:46 Discharged to Home. Impression: Pain in left leg, Peripheral Artery Disease. - Condition is Stable. - Discharge Instructions: Musculoskeletal Pain. - Prescriptions for cilostazol 100 mg Oral tablet - take 1 tablet by ORAL route 2 times per day 1/2 hour before or 2 hours after breakfast and dinner; 60 tablet. Eliquis 5 mg Oral tablet - take 1 tablet by ORAL route 2 times per day Start on 04/09/2020; 60 tablet. - Medication Reconciliation Form, Thank You Letter, Antibiotic Education, Prescription Opioid Use form. - Follow up: Kunal Xiao MD; When: 2 - 3 days; Reason: Recheck today's complaints, Continuance of care, Re-evaluation by your physician. Signatures: Dispatcher [employer] EDMS Jana Hawkins Corey, MD MD cha Mickail, Joel, PA PA Leonora Jordan RN RN ll1 Corrections: (The following items were deleted from the chart) 16:58 15:46 04/07/2020 15:46 Discharged to Home. Impression: Pain in left leg; Peripheral ll1 Artery Disease. Condition is Stable. Forms are Medication Reconciliation Form, Thank You Letter, Antibiotic Education, Prescription Opioid Use. Follow up: Kunal Xiao; When: 2 - 3 days; Reason: Recheck today's complaints, Continuance of care, Re-evaluation by your physician. jmm
[2020-04-07 16:19] LABS: Protime INR 21.07
[2020-04-07 17:09] VITALS: BP 152/66; TEMP 97.8; O2SAT 97
--- NOTE | 2020-04-08 06:29 | EKG ---
Test Date: 2020-04-07 Test Time: 14:25:29 Beauty Therapist: DONNIE MEASUREMENT RESULTS: Intervals: Rate: 66 NC: 140 QRSD: 96 QT: 400 QTc: 419 [place]: P: 58 NC: 140 QRS: -49 T: 56 INTERPRETIVE STATEMENTS: Sinus rhythm with premature atrial complexes Left anterior fascicular block Minimal voltage criteria for LVH, may be normal variant Abnormal ECG Compared to ECG 03/02/2018 12:21:17 Atrial premature complex(es) now present Left anterior fascicular block now present Left ventricular hypertrophy now present Sinus tachycardia no longer present Myocardial infarct finding no longer present ST (T wave) deviation no longer present Electronically Signed On 04-08-20 06:27:07 [employer] by Ehsan Bettencourt
== END 2020-04-07 16:58 | disposition home or self-care (01) ==
LOC: ER 13:41
DX: I73.9 Peripheral vascular disease, unspecified (principal); E11.22 Type 2 diabetes mellitus with diabetic chronic kidney disease; I12.0 Hypertensive chronic kidney disease with stage 5 chronic kidney disease or end stage renal disease; N18.6 End stage renal disease; G30.9 Alzheimer's disease, unspecified; F02.80 Dementia in other diseases classified elsewhere, unspecified severity, without behavioral disturbance, psychotic disturbance, mood disturbance, and anxiety; Z79.01 Long term (current) use of anticoagulants; Z88.6 Allergy status to analgesic agent; Z86.718 Personal history of other venous thrombosis and embolism
CPT/HCPCS: 85025; 80048; 36415; 83735; 85610; 80076; 84484; 83880; 93926; 93971; J2270; J2405; 93005; 96374; 96375; 99284

== ENCOUNTER 2020-04-08 14:14 | Inpatient (IN) | payer OTHER ==
[2020-04-08 15:21] LABS: Absolute Lymphocytes (CBC) 0.4 K/uL (0.7-4.9); Basophils % 0.6 % (0-1.3); Hematocrit 23.4 % (36.0-45.0); MPV 8.9 fL (7.6-11.3); RBC Red Blood Cell Count 2.49 M/uL (3.86-4.86)
[2020-04-08 15:31] LABS: Protime INR 22.62
[2020-04-08 15:37] LABS: Albumin 2.7 g/dL (3.4-5.0); Bilirubin Total 0.3 mg/dL (0.2-1.0); Protein, Total 6.8 g/dL (6.4-8.2)
[2020-04-08 15:45] LABS: Potassium 5.6 mmol/L (3.5-5.1)
--- NOTE | 2020-04-08 16:45 | EDPHYS ---
Physician Documentation [facility] Name: Raya Coleman Age: 84 yrs Sex: Female : 1935 Arrival Date: 04/08/2020 Time: 14:30 Bed 19 Private MD: ED Physician Don Begum HPI: 04/08 15:55 This 84 yrs old Female presents to ER via EMS with complaints of left leg pain.jmm 15:55 The patient presents with pain. Onset: The symptoms/episode began/occurred gradually, 3 jmm week(s) ago. Modifying factors: The symptoms are alleviated by nothing. the symptoms are aggravated by nothing. This is an 84 year old female with a history of alzheimers, SM, GERD, HLP, HTN that presents to the ED with ongoing left leg pain beginning approx 3 week ago. Evaluated in the ED yesterday with decreased arterial flow. Patient's pain has worsened with concerns for occlusion. . Historical: - Allergies: 14:49 NSAIDS; zb - Home Meds: 14:49 acetaminophen 500 mg Oral tab 1 tab every 3 hours [Active]; amlodipine 10 mg tab 1 tab zb once daily [Active]; donepezil 10 mg Oral tab 1 tab once daily [Active]; doxazosin 2 mg Oral tab 1 tab once daily [Active]; Januvia 50 mg Oral tab 1 tabs once daily for Type 2 Diabetes Mellitus [Active]; metoprolol tartrate 50 mg Oral tab 1 tab 2 times per day [Active]; Namenda Oral [Active]; ramipril 10 mg Oral cap 1 cap once daily for Hypertension [Active]; tramadol 50 mg Oral tab 1 tab every 6 hours [Active]; Vitamin D Oral [Active]; - PMHx: 14:49 Alzheimers; Diabetes - NIDDM; GERD; Hyperlipidemia; Hypertension; Renal Disease; zb - PSHx: 14:49 Hysterectomy; zb - Immunization history:: Adult Immunizations up to date. - Social history:: Smoking status: Patient denies any tobacco usage or history of. ROS: 15:55 Constitutional: Negative for fever, chills, and weight loss, Cardiovascular: Negative jmm for chest pain, palpitations, and edema, Respiratory: Negative for shortness of breath, cough, wheezing, and pleuritic chest pain. 15:55 MS/extremity: Positive for pain. 15:55 All other systems are negative. Exam: 15:55 Constitutional: This is a well developed, well nourished patient who is awake, alert, jmm and in no acute distress. Head/Face: atraumatic. Eyes: EOMI, no conjunctival erythema appreciated ENT: Moist Mucus Membranes Neck: Trachea midline, Supple Chest/axilla: Normal chest wall appearance and motion. Cardiovascular: Regular rate and rhythm. No edema appreciated Respiratory: Normal respirations, no respiratory distress appreciated Abdomen/GI: Non distended, soft Back: Normal ROM Skin: General appearance color normal 15:55 Musculoskeletal/extremity: no palpable pulse noted to the left foot, compartments are soft, foot is still warm. 15:55 Skin: Appearance: Color: normal in color. 15:55 Neuro: Orientation: is normal, Mentation: is normal, Memory: is normal. 15:55 Psych: Behavior/mood is pleasant, cooperative. Vital Signs: 14:42 BP 130 / 78; Pulse 65; Resp 14; Temp 97.8; Pulse Ox 100% on R/A; Weight 52.3 kg; Height zb 5 ft. (152.40 cm); Pain 10/10; 16:00 BP 128 / 81; Pulse 64; Resp 16; Pulse Ox 99% on R/A; zb 17:00 BP 133 / 77; Pulse 63; Resp 16; Pulse Ox 100% on R/A; zb 18:00 BP 164 / 60; Pulse 64; Resp 18; Pulse Ox 100% on R/A; zb 19:00 BP 142 / 52; Pulse 63; Resp 16; Pulse Ox 100% on R/A; zb 20:00 BP 134 / 54; Pulse 62; Resp 16; Pulse Ox 100% on R/A; zb 21:00 BP 138 / 54; Pulse 60; Resp 18; Pulse Ox 100% on R/A; zb 22:00 BP 147 / 57; Pulse 64; Resp 16; Pulse Ox 100% on R/A; zb 14:42 Body Mass Index 22.52 (52.30 kg, 152.40 cm) zb MDM: 14:44 Patient medically screened. tamica 16:42 Data reviewed: vital signs, nurses notes. Counseling: I had a detailed discussion with tamica the patient and/or guardian regarding: the historical points, exam findings, and any diagnostic results supporting the discharge/admit diagnosis, lab results, the need for further work-up and treatment in the hospital. ED course: Unable to transfer due to hospital capacity. Dr. Xiao accepted admission. Advises to put on heparin with abx. . 04/08 14:44 Order name: CBC with Diff; Complete Time: 15:31 [facility] 04/08 14:44 Order name: CMP; Complete Time: 15:49 [facility] 04/08 14:45 Order name: PT-INR; Complete Time: 15:31 [facility] 04/08 18:01 Order name: COVID-19/FLU A+B; Complete Time: 18:17 EDMS 04/08 17:23 Order name: CT Head Brain wo Cont; Complete Time: 18:42 [facility] 04/08 20:18 Order name: Basic Metabolic Panel [facility] 04/08 20:18 Order name: Basic Metabolic Panel [facility] 04/08 20:18 Order name: CBC with Automated Diff EDMS 04/08 20:18 Order name: CBC with Automated Diff [facility] 04/08 22:32 Order name: Ptt, Activated zb 04/08 14:44 Order name: Saline Lock; Complete Time: 15:13 [facility] 04/08 14:56 Order name: EKG - Nurse/Tech; Complete Time: 15:33 [facility] 04/08 19:19 Order name: Carbone; Complete Time: 21:39 [facility] 04/08 20:18 Order name: CONS Physician Consult EDMS Administered Medications: 18:51 Drug: Heparin (MO Drip) 12 units/kg/hr - (HEParin 59540 units, D5W 500 ml) zb {Co-Signature: [id number] (Fidencio Michel RN).} Route: IV; Rate: calculated rate; Site: right forearm; 23:20 Follow up: Response: No adverse reaction; IV Status: Infusion continued upon admission zb Disposition: 04/08/20 16:45 Hospitalization ordered by Kunal Xiao for Observation. 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 - Bed requested for Telemetry/MedSurg (observation). - Status is Observation. em - Condition is Stable. - Problem is new. - Symptoms are unchanged. Addendum: 04/11/2020 07:09 Co-signature as Attending Physician, Don Begum MD. m a2 Signatures: Dispatcher [employer] EDGA raghavendraJana harkins bd Darryn Sanabria PA PA jmm Munoz, Edgar, RN RN em Claudia Alvarenga, RN RN tl1 Don Begum MD MD ma2 Shelby Flores RN RN zb Fidencio Michel RN jd3 Corrections: (The following items were deleted from the chart) 04/08 17:02 15:19 CORONAVIRUS+MR.LAB.BRZ ordered. EDMS EDMS 17:02 15:19 Influenza Screen (A \T\ B)+BA.LAB.BRZ ordered. EDGA EDMS 18:23 16:45 Hospitalization Ordered by Kunal Xiao MD for Observation. Preliminary diagnosis bd is Left Popliteal Arterial Stenosis; Intractable Pain; Coumadin Toxicity; Hyperkalemia. Bed requested for Telemetry/MedSurg (observation). Status is Observation. Condition is Stable. Problem is new. Symptoms are unchanged. [facility] 20:08 17:27 Lower Ext Angio ordered. EDGA EDMS 21:34 18:23 04/08/2020 16:45 Hospitalization Ordered by Kunal Xiao MD for Observation. tl1 Preliminary diagnosis is Left Popliteal Arterial Stenosis; Intractable Pain; Coumadin Toxicity; Hyperkalemia. Bed requested for [facility] ER HOLD. Status is Observation. Condition is Stable. Problem is new. Symptoms are unchanged. bd 23:52 21:34 04/08/2020 16:45 Hospitalization Ordered by Kunal Xiao MD for Observation. em Preliminary diagnosis is Left Popliteal Arterial Stenosis; Intractable Pain; Coumadin Toxicity; Hyperkalemia. Bed requested for Telemetry/MedSurg (observation). Status is Observation. Condition is Stable. Problem is new. Symptoms are unchanged. tl1
--- NOTE | 2020-04-08 16:45 | ER ---
Nurse's Notes [facility] Name: Raya Coleman Age: 84 yrs Sex: Female : 1935 Arrival Date: 04/08/2020 Time: 14:30 Bed 19 Private MD: Diagnosis: Left Popliteal Arterial Stenosis;Intractable Pain;Coumadin Toxicity;Hyperkalemia Presentation: 04/08 14:42 Chief complaint: EMS states: pt came to ER with c/o of left foot pain for 3 weeks. zb States that her foot feels numb, rates pain 10/10 pins and needles with movement of touch. Coronavirus screen: Client denies travel out of the [place] in the last 14 days. Ebola Screen: No symptoms or risks identified at this time. Initial Sepsis Screen: Does the patient meet any 2 criteria? No. Patient's initial sepsis screen is negative. Does the patient have a suspected source of infection? No. Patient's initial sepsis screen is negative. Risk Assessment: Do you want to hurt yourself or someone else? Patient reports no desire to harm self or others. Onset of symptoms was March 13, 2019. 14:42 Acuity: OUMAR 3 zb 14:42 Method Of Arrival: EMS: [facility] zb Triage Assessment: 14:49 General: Appears in no apparent distress. uncomfortable, Behavior is calm, cooperative, zb appropriate for age. Pain: Complains of pain in anterior aspect of left ankle and dorsum of left foot Pain does not radiate. Pain currently is 10 out of 10 on a pain scale. Quality of pain is described as shooting, tender, tingling, Pain began 3 weeks ago. EENT: Sclera/Cornea jaundiced . Neuro: Level of Consciousness is awake, alert, obeys commands, Oriented to person, place, time, situation. Cardiovascular: Denies chest pain, diaphoresis, lightheadedness, palpitations, shortness of breath, Heart tones S1 S2 present Capillary refill < 3 seconds Patient's skin is warm and dry. Pulses are absent in right posterior tibial artery, right dorsalis pedis artery, left posterior tibial artery and left dorsalis pedis artery. Respiratory: Airway is patent Respiratory effort is even, unlabored, Respiratory pattern is regular, symmetrical, Breath sounds are clear bilaterally. GI: No signs and/or symptoms were reported involving the gastrointestinal system. : No signs and/or symptoms were reported regarding the genitourinary system. Derm: Skin is intact, is thin, Skin is dry, Skin is jaundiced, Left foot is cooler than right Reports pain that is 10 out of 10 on a pain scale. tingling, since 3 weeks . Musculoskeletal: Range of motion: limited in LLE Swelling absent Reports numbness in anterior aspect of left ankle and dorsum of left foot pain in left hernandes, anterior aspect of left ankle and dorsum of left foot since 3 weeks . Pain is 10 out of 10 on a pain scale. Historical: - Allergies: 14:49 NSAIDS; zb - Home Meds: 14:49 acetaminophen 500 mg Oral tab 1 tab every 3 hours [Active]; amlodipine 10 mg tab 1 tab zb once daily [Active]; donepezil 10 mg Oral tab 1 tab once daily [Active]; doxazosin 2 mg Oral tab 1 tab once daily [Active]; Januvia 50 mg Oral tab 1 tabs once daily for Type 2 Diabetes Mellitus [Active]; metoprolol tartrate 50 mg Oral tab 1 tab 2 times per day [Active]; Namenda Oral [Active]; ramipril 10 mg Oral cap 1 cap once daily for Hypertension [Active]; tramadol 50 mg Oral tab 1 tab every 6 hours [Active]; Vitamin D Oral [Active]; - PMHx: 14:49 Alzheimers; Diabetes - NIDDM; GERD; Hyperlipidemia; Hypertension; Renal Disease; zb - PSHx: 14:49 Hysterectomy; zb - Immunization history:: Adult Immunizations up to date. - Social history:: Smoking status: Patient denies any tobacco usage or history of. Screenin:04 Abuse screen: Denies threats or abuse. Denies injuries from another. Nutritional zb screening: No deficits noted. Tuberculosis screening: No symptoms or risk factors identified. Fall Risk No fall in past 12 months (0 pts). Secondary diagnosis (15 points) impaired mobility, IV access (20 points). Ambulatory Aid- None/Bed Rest/Nurse Assist (0 pts). Gait- Normal/Bed Rest/Wheelchair (0 pts) Mental Status- Oriented to own ability (0 pts). Total Alcantara Fall Scale indicates High Risk Score (45 or more points). Fall prevention measures have been instituted. Side Rails Up X 2 Placed Close to Nursing Station Frequent Obs/Assessments Occuring As available patient and family educated on Fall Prevention Program and Strategies. Assessment: 15:00 Reassessment: See triage note. zb 16:00 Reassessment: Patient appears in no apparent distress at this time. Patient and/or zb family updated on plan of care and expected duration. Pain level reassessed. VSS. no signs of acute distress at this time. 17:00 Reassessment: Patient appears in no apparent distress at this time. Patient and/or zb family updated on plan of care and expected duration. Pain level reassessed. Patient is alert, oriented x 3, equal unlabored respirations, skin warm/dry/pink. 18:00 Reassessment: Patient appears in no apparent distress at this time. Patient and/or zb family updated on plan of care and expected duration. Pain level reassessed. Patient is alert, oriented x 3, equal unlabored respirations, skin warm/dry/pink. 19:00 Reassessment: Patient appears in no apparent distress at this time. Patient and/or zb family updated on plan of care and expected duration. Pain level reassessed. Patient is alert, oriented x 3, equal unlabored respirations, skin warm/dry/pink. 20:00 Reassessment: Patient appears in no apparent distress at this time. Patient and/or zb family updated on plan of care and expected duration. Pain level reassessed. Patient is alert, oriented x 3, equal unlabored respirations, skin warm/dry/pink. 21:00 Reassessment: Patient appears in no apparent distress at this time. Patient and/or zb family updated on plan of care and expected duration. Pain level reassessed. Patient is alert, oriented x 3, equal unlabored respirations, skin warm/dry/pink. 22:00 Reassessment: Patient appears in no apparent distress at this time. Patient and/or zb family updated on plan of care and expected duration. Pain level reassessed. Patient is alert, oriented x 3, equal unlabored respirations, skin warm/dry/pink. Vital Signs: 14:42 BP 130 / 78; Pulse 65; Resp 14; Temp 97.8; Pulse Ox 100% on R/A; Weight 52.3 kg; Height zb 5 ft. (152.40 cm); Pain 10/10; 16:00 BP 128 / 81; Pulse 64; Resp 16; Pulse Ox 99% on R/A; zb 17:00 BP 133 / 77; Pulse 63; Resp 16; Pulse Ox 100% on R/A; zb 18:00 BP 164 / 60; Pulse 64; Resp 18; Pulse Ox 100% on R/A; zb 19:00 BP 142 / 52; Pulse 63; Resp 16; Pulse Ox 100% on R/A; zb 20:00 BP 134 / 54; Pulse 62; Resp 16; Pulse Ox 100% on R/A; zb 21:00 BP 138 / 54; Pulse 60; Resp 18; Pulse Ox 100% on R/A; zb 22:00 BP 147 / 57; Pulse 64; Resp 16; Pulse Ox 100% on R/A; zb 14:42 Body Mass Index 22.52 (52.30 kg, 152.40 cm) zb ED Course: 14:30 Patient arrived in ED. zb 14:42 Shelby Flores RN is Primary Nurse. zb 14:44 Darryn Sanabria PA is PHCP. m 14:44 Don Begum MD is Attending Physician. [facility] 14:45 Triage completed. zb 15:05 Patient has correct armband on for positive identification. Bed in low position. Call zb light in reach. Side rails up X 1. Pulse ox on. NIBP on. 15:05 Arm band placed on. zb 15:12 Inserted saline lock: 20 gauge in right antecubital area, using aseptic technique. dh4 Blood collected. Inserted saline lock:. Missed attempt(s): 20 gauge in right forearm. 15:21 initiated transfer to [facility], pt denied due to no beds and er being on er bd to er saturation, per Ken. 15:28 initiated transfer to [facility]. bd 15:37 initiated transfer to [facility]. bd 15:38 Pt denied at [facility] due to hospital being on divert. all other [place] are also on bd divert, per Jacinta Rivas. 15:48 pt denied at [facility] due to hospital being on transfer closer. [facility] and bd all other [facility] hospitals are on transfer closer. Per Kristen at [facility] transfer center. 15:53 initiated transfer to [facility] . bd 16:28 pt denied at [facility] due to all [facility] hospitals being at capacity, per Barbara. bd 16:44 Kunal Xiao MD is Hospitalizing Provider. [facility] 18:14 CT Head Brain wo Cont In Process Unspecified. EDMS 21:40 Carbone cath inserted, using sterile technique, 16 Fr., by in, balloon inflated, to zb gravity drainage. 23:52 No provider procedures requiring assistance completed. Patient admitted, IV remains in em place. Administered Medications: 18:51 Drug: Heparin ([place] Drip) 12 units/kg/hr - (HEParin 47027 units, D5W 500 ml) zb {Co-Signature: estephania (Fidencio Michel RN).} Route: IV; Rate: calculated rate; Site: right forearm; 23:20 Follow up: Response: No adverse reaction; IV Status: Infusion continued upon admission zb Outcome: 16:45 Decision to Hospitalize by Provider. m 23:52 Admitted to Med/surg accompanied by tech, via stretcher, room 224. em 23:52 Condition: stable 23:52 Instructed on the need for admit, Demonstrated understanding of instructions. 23:52 Patient left the ED. em Signatures: Dispatcher [employer] EDMS Jana Hawkins bd Darryn Sanabria PA PA [facility] Wero Murray, RN RN em Krystian Chang [facility] Shelby Flores RN RN zb Fidencio Michel RN [id number] Corrections: (The following items were deleted from the chart) 15:40 15:35 pt denied due to [facility] being on diversion. per Jacinta Rivas. bd bd 17:54 14:42 BP 130 / 78; Pulse 65bpm; Resp 14bpm; Pulse Ox 100% RA; Temp 97.8F; 49.9 kg; zb Height 5 ft.; BMI: 21.4; Pain 10/10; zb
[2020-04-08 18:00] LABS: SARS-COV-2 RT PCR NEGATIVE (NEGATIVE)
--- NOTE | 2020-04-08 18:37 | RAD REPORT ---
EXAM DESCRIPTION: CT - Head Brain Wo Cont - 04/08/2020 6:07 pm CLINICAL HISTORY: Headache COMPARISON: None TECHNIQUE: Computed axial tomography of the head was obtained. IV contrast was not requested. All CT scans are performed using dose optimization technique as appropriate and may include automated exposure control or mA/KV adjustment according to patient size. FINDINGS: An intracranial bleed is not seen . The ventricles are normal in caliber. No extra-axial fluid collection is noted. Empty sella turcica Mild low-density areas within periventricular, deep and subcortical white matter likely represent isc hemic changes secondary to small vessel disease. Fluid within the sinuses/ mastoids is not seen. IMPRESSION: No acute intracranial abnormality is seen. If patient's symptoms persist MRI of the bra in would be recommended.
[2020-04-08] MEDS ORDERED: HEPARIN 5000 UNIT/ML 1 ML VIAL ONE (18:55)
[2020-04-08] MEDS ORDERED: HEPARIN/D5W 25,000 UNIT/500 ML BAG IV ONE (18:55)
[2020-04-08] MEDS ORDERED: MORPHINE 4 MG/ML SYR IV PRN (20:14)
[2020-04-08] MEDS ORDERED: ONDANSETRON 4 MG/2 ML VIAL IV PRN (20:14)
[2020-04-08] MEDS ORDERED: ACETAMINOPHEN 500 MG TAB PO PRN (20:14)
--- NOTE | 2020-04-08 20:17 | P.HP ---
Certification for Inpatient Patient admitted to: Inpatient With expected LOS: >2 Midnights Patient will require the following post-hospital care: Fpc Practitioner: I am a practitioner with admitting privileges, knowledge of patient current condition, hospital course, and medical plan of care. Services: Services provided to patient in accordance with Admission requirements found in Title 42 Section 412.3 of the Code of Federal Regulations Patient History Date of Service: 04/08/20 Primary Care Provider: Dameon Reason for admission: vascular occlusion of the left foot History of Present Illness: Patient of mine with a history of diabetes, htn and stage 5 CKd. She is currently on hospice for the renal function She started having left foot pain and coldness yesterday. The patient was sent to the ER was found to have stenosis of the popliteal leg and an elevated INR. The patient was sent back to [place]. Her pain and discoloration were worsening and was sent back to the ER. The patient was seen in the ER. Tried sending the patient to a hospital for intervention. However there are no beds in the [facility]. Have considered an angiogram and doing tpa. However radiology refused due to the contrast. Allergies No Known Allergies Allergy (Unverified 06/17/11 12:33) Home Medications: Amlodipine Besylate 10 mg PO DAILY 06/17/11 Clonazepam [Klonopin] 0.5 mg PO PRN PRN 06/17/11 Divalproex [Depakote Sprinkle] 125 mg PO BID 06/17/11 Donepezil HCl 10 mg PO DAILY 06/17/11 Fexofenadine HCl [Laura Allergy] 180 mg PO DAILY 06/17/11 Gemfibrozil 600 mg PO BID 06/17/11 Gemfibrozil 600 mg PO DAILY 06/17/11 Memantine HCl [Namenda] 10 mg PO BID 06/17/11 Ferrous Gluconate 324 mg PO BID 30 Days #60 tablet 03/05/18 Levofloxacin [Levaquin] 500 mg PO DAILY 4 Days #4 tablet 03/05/18 Prednisone [Sterapred Ds] 10 mg PO BID #21 tab.ds.pk 03/05/18 - Past Medical/Surgical History Diabetic: Yes -: dementia -: diabetes - Social History Alcohol use: Yes CD- Drugs: No Caffeine use: Yes Review of Systems Musculoskeletal: Foot Pain (left foot pain ) Physical Examination - Physical Exam General: Alert, In no apparent distress HEENT: Atraumatic, PERRLA, Mucous membr. moist/pink, EOMI, Sclerae nonicteric Neck: Supple, 2+ carotid pulse no bruit, No LAD, Without JVD or thyroid abnormality Respiratory: Clear to auscultation bilaterally, Normal air movement Cardiovascular: Regular rate/rhythm, Normal S1 S2, Abnormal pulses (left foot pain, bluish discoloration. Painful to the touch ) Gastrointestinal: Normal bowel sounds, No tenderness Musculoskeletal: No tenderness Integumentary: No rashes Neurological: Normal gait, Normal speech, Normal strength at 5/5 x4 extr, Normal tone, Normal affect Lymphatics: No axilla or inguinal lymphadenopathy - Studies Laboratory Data (last 24 hrs) 04/08/20 15:11: PT 251.1 H, INR 22.62 H* 04/08/20 15:11: Sodium 138, Potassium 5.6 H*, BUN 70 H, Creatinine 4.44 H, Glucose 121 H, Total Bilirubin 0.3, AST 15, ALT 10 L, Alkaline Phosphatase 178 H 04/08/20 15:11: WBC 7.20 D, Hgb 7.6 L*, Hct 23.4 L, Plt Count 289 Assessment and Plan - Problems (Diagnosis) (1) Vascular occlusion Current Visit: Yes Status: Acute Plan: Possible occlusion of the foot. The patient would do best with vascular intervention. However there are no bed avalible. We could try tPA. However would need an angiogram to prove there is a clot rather than blindly giving tPA. Will continue the patient on Heparin. Manage pain. Will Have consults to see if there is an shove up we can tranfer the patient too (2) CKD stage 5 secondary to hypertension Current Visit: Yes Status: Acute Plan: Have spoken to Dr. Shabazz We may not be able to get an angiogram. Will place a valenzuela. Monitor the patients labs. Have spent [address] Shabazz (3) Diabetes 1.5, managed as type 2 Current Visit: No Status: Acute Plan: Patient has been off meds. With normal blood sugars. Will hold off the medications. will continue with accuchecks. (4) End of life care Current Visit: Yes Status: Acute Plan: Have called daughter in law Davina Swain . She does not want the patient to suffer. Will start the patient on fentanyl 50mcg tts with dilaudid for breakthrough Discharge Plan: Correction Plan to discharge in: Greater than 2 days - Advance Directives Does patient have a Living Will: No Does patient have a Durable POA for Healthcare: Yes - Code Status/Comfort Care Code Status Assessed: No Code Status: Do Not Attempt Resuscitat Physician Review: Patient Assessed, Agree with Above Assessment and Plan Critical Care: No Time Spent Managing Pts Care (In Minutes): 75
[2020-04-08] MEDS ORDERED: HEPARIN/D5W 25,000 UNIT/500 ML BAG IV SCH (21:00)
[2020-04-09 00:03] VITALS: BMI 23.3
[2020-04-09] MEDS: HYDROMORPHONE HCL 0.5 MG/0.5 ML INJ IV PRN ×3 (03:16→21:13)
[2020-04-09 05:11] LABS: Absolute Lymphocytes (CBC) 0.5 K/uL (0.7-4.9); Basophils % 0.6 % (0-1.3); Hematocrit 22.6 % (36.0-45.0); Lymphocytes % 6.6 % (15.3-44.8)
[2020-04-09] MEDS ORDERED: FENTANYL 25 MCG/PATCH TD SCH (09:00)
--- NOTE | 2020-04-09 11:08 | P.PN ---
Subjective Date of Service: 04/09/20 Primary Care Provider: Dameon Chief Complaint: vascular occlusion of the left foot Subjective: No new changes Review of Systems 10-point ROS is otherwise unremarkable Musculoskeletal: Foot Pain (left foot, blue discoloration. ) Physical Examination - Vital Signs Temperature: 97.2 F Blood Pressure: 160/60 Pulse: 65 Respirations: 16 Pulse Ox (%): 100 - Physical Exam General: Alert, In no apparent distress HEENT: Atraumatic, PERRLA, EOMI Neck: Supple, JVD not distended Respiratory: Clear to auscultation bilaterally, Normal air movement Cardiovascular: Regular rate/rhythm, Normal S1 S2 Gastrointestinal: Normal bowel sounds, No tenderness Musculoskeletal: No tenderness Integumentary: No rashes, Cyanosis (left foot) Neurological: Normal speech, Normal tone, Normal affect Lymphatics: No axilla or inguinal lymphadenopathy - Studies Laboratory Data (last 24 hrs) 04/09/20 10:15: APTT 72.6 H 04/09/20 04:42: APTT 90.5 H 04/09/20 04:42: Sodium 139, Potassium 6.0 H*, BUN 74 H, Creatinine 4.42 H, Glucose 98 04/09/20 04:42: WBC 6.80, Hgb 7.4 L*, Hct 22.6 L, Plt Count 275 04/09/20 00:05: APTT 125.0 H* 04/08/20 15:11: PT 251.1 H, INR 22.62 H* 04/08/20 15:11: Sodium 138, Potassium 5.6 H*, BUN 70 H, Creatinine 4.44 H, Glucose 121 H, Total Bilirubin 0.3, AST 15, ALT 10 L, Alkaline Phosphatase 178 H 04/08/20 15:11: WBC 7.20 D, Hgb 7.6 L*, Hct 23.4 L, Plt Count 289 Assessment And Plan - Current Problems (Diagnosis) (1) Vascular occlusion Current Visit: Yes Status: Acute Plan: Possible occlusion of the foot. The patient would do best with vascular intervention. However there are no bed avalible. We could try tPA. However would need an angiogram to prove there is a clot rather than blindly giving tPA. Will continue the patient on Heparin. Start the patient on a fenatnyl patch. She so far has not had any relief. Will give it 12 hours before increasing the dosage from 25mcg [id number]. Have spoken to LILLIAN Mullen. He had a few suggestions. such as a scan using co2 which wouldn't affect her kidneys. Will see if we can get her in with the vascular surgeons in [facility]. Will await his call. Have spoken to the daughter, have informed her of the plan. Warned her that she may need vascular surgery or an amputation. These are questions that she may face in the near future. She stated she wants to do what keeps her going. (2) CKD stage 5 secondary to hypertension Current Visit: Yes Status: Acute Plan: Have spoken to Dr. Shabazz We may not be able to get an angiogram. Will place a valenzuela. Monitor the patients labs. Have spent [address] Shabazz (3) Diabetes 1.5, managed as type 2 Current Visit: No Status: Acute Plan: Patient has been off meds. With normal blood sugars. Will hold off the medications. will continue with accuchecks. (4) End of life care Current Visit: Yes Status: Acute Plan: Have called daughter in law Davina Swain . She does not want the patient to suffer. Will start the patient on fentanyl 50mcg tts with dilaudid for breakthrough Discharge Plan: Senior Living Plan to discharge in: Greater than 2 days - Code Status/Comfort Care Code Status Assessed: No Physician Review: Patient Assessed, Agree with Above Assessment and Plan Critical Care: No Time Spent Managing PTS Care (In Minutes): 45
--- NOTE | 2020-04-09 12:05 | P.PN ---
Date of Service: 04/09/[address] Gill the vascular surgeon in [facility]. After 24 hours an intervention is unlikely to be of benefit. We may only be able to do an amputation. Possible we can transfer the patient if there was a bed. He was not enthusiastic about her options. An amputation may be an her only option. This is not a good choice for an an 84 year old hospice patient with stage 5 ckd. I do agree with his assessment.
[2020-04-09] MEDS ORDERED: SOD POLYSTYREN SUL 15 GM/60 ML UCUP PO ONE (16:55)
[2020-04-09] MEDS ORDERED: NA CHLORIDE 0.9% 1,000 ML IV SCH (17:00)
--- NOTE | 2020-04-09 18:21 | CON ---
Date of Consultation: 04/09/2020 Reason For Consultation: Chronic renal insufficiency. History Of Present Illness: Ms. Coleman is an 84-year-old female with past medical history significan t for history of chronic renal insufficiency, who was on hospice, but presented to [facility] because of having left foot pain and was cold to touch. She was noted to have severe stenosis of t he popliteal artery and is being considered for revascularization procedure because of intractable pa in and discomfort. The patient is currently in the process of being initiating a transfer [facility] level of care for vascular surgeon to do possible angiogram and revascularization procedure; [facility], she has advanced renal insufficiency and Nephrology is being consulted for optimization. Past Medical History: Significant for history of chronic renal insufficiency stage 5, hypertension, and peripheral vascular disease. Home Medications: Have been reviewed in detail. Social History: The patient was living at shelter prior to this. No history of alcohol or drug use reported. Review of Systems: Positive for severe pain in the left leg. Denies any chest pain. Denies any shortness of breath. A ll other review of systems are negative. Physical Examination: Vital Signs: At this time showing temperature of 97, pulse rate of 65, respiratory rate of 16, and b lood pressure 165/73. General: She appears in no acute distress. HEENT: Shows atraumatic head. Lungs: Clear to auscultation. Abdomen: Soft and nontender. Extremities: Showed left lower extremity without any pulses. No gangrene was noted. Current Medications: Have been reviewed. The patient is on fentanyl patch. She is also on Dilaudid p.r.n. for pain and cilostazol 100 mg b.i.d. Laboratory Data: At this time showing sodium of 139, potassium of 6, chloride of 111, BUN of 74, and creatinine of 4.4. CBC showed hemoglobin of 7.4, hematocrit 22.6, and platelet count of 275. Impression: 1.Chronic renal insufficiency. 2.Peripheral vascular disease with possible popliteal artery occlusion. 3.Acute pain secondary to severe peripheral occlusive disease. 4.Anemia secondary to renal insufficiency. 5.Hyperkalemia. 6.Hypertension. 7.Pain related to acute peripheral vascular disease. Plan: I have discussed with Dr. Xiao. The patient and family are agreeable at this time per Dr. Ahsan clayton's discussion for dialysis if she needs to have it. We have initiated the transfer process. We w ill go ahead and optimize her kidneys by starting her on gentle IV hydration and also improving her p otassium status as well as giving her a dose of Epogen to improve her anemia level and Kayexalate to improve her hyperkalemia. Continue fentanyl and Dilaudid for pain management, and we will follow up closely. VV/MODL Voice ID: [id number] Report ID: [id number]
[2020-04-09] MEDS ORDERED: ACETYLCYST 20% 800 MG/4 ML VIAL PO SCH (21:00)
[2020-04-09] MEDS ORDERED: cilostazoL 100 MG TAB PO SCH (21:00)
[2020-04-10 00:24] VITALS: O2SAT 98
[2020-04-10 05:56] VITALS: BP 164/73; TEMP 97.2
[2020-04-10 06:15] LABS: Absolute Lymphocytes (CBC) 0.5 K/uL (0.7-4.9); Basophils % 0.6 % (0-1.3); Hematocrit 23.6 % (36.0-45.0); RBC Red Blood Cell Count 2.56 M/uL (3.86-4.86)
[2020-04-10 07:00] LABS: Potassium 4.8 mmol/L (3.5-5.1)
--- NOTE | 2020-04-10 09:16 | P.DS ---
Admission Date: 04/09/20 Discharge Date: 04/10/20 Primary Care Provider: Dameon Disposition: TRANSFER TO [facility] Reason for Admission: vascular occlusion of the left foot - Problems (1) Vascular occlusion Status: Acute (2) CKD stage 5 secondary to hypertension Status: Acute (3) Diabetes 1.5, managed as type 2 Status: Acute (4) End of life care Status: Acute Brief History of Present Illness: Patient of mine with a history of diabetes, htn and stage 5 CKd. She is currently on hospice for the renal function She started having left foot pain and coldness yesterday. The patient was sent to the ER was found to have stenosis of the popliteal leg and an elevated INR. The patient was sent back to [facility]. Her pain and discoloration were worsening and was sent back to the ER. The patient was seen in the ER. Tried sending the patient to a hospital for intervention. However there are no beds in the [facility]. Have considered an angiogram and doing tpa. However radiology refused due to the contrast. Hospital Course: Patient admitted for a cold, painful foot. Started on a Heparin drip. we started fentanyl for pain management. she was not well controlled. Have discussed her with Dr. Carreno and a vascular surgeon in the medical center. Revascularization is unlikely to be sucessful at this point. Most likely she will need an amputation The Surgeons would want to be able to do dialysis if they are taking her to the OR. Discussed this with Mrs Michael Swain her POA. She was amenable to this. Transfer orders were put in. She was taken early this morning before I made rounds. Please see yesterday's note for the last physical exam Vital Signs/Physical Exam: Temp Pulse Resp BP Pulse Ox 97.2 F 102 H 16 164/73 H 98 04/10/20 04:00 04/10/20 04:00 04/10/20 04:00 04/10/20 04:00 04/10/20 04:00 General: Alert, In no apparent distress Laboratory Data at Discharge: WBC 9.10 K/uL (4.3-10.9) D 04/10/20 05:12 Hgb 7.8 g/dL (12.0-15.0) L* 04/10/20 05:12 Hct 23.6 % (36.0-45.0) L 04/10/20 05:12 Plt Count 313 K/uL (152-406) 04/10/20 05:12 PT 251.1 SECONDS (9.5-12.5) H 04/08/20 15:11 INR 22.62 H* 04/08/20 15:11 APTT 65.4 SECONDS (24.3-36.9) H 04/10/20 05:12 Sodium 140 mmol/L (136-145) 04/10/20 05:12 Potassium 4.8 mmol/L (3.5-5.1) 04/10/20 05:12 BUN 70 mg/dL (7-18) H 04/10/20 05:12 Creatinine 4.02 mg/dL (0.55-1.3) H 04/10/20 05:12 Glucose 92 mg/dL (74-106) 04/10/20 05:12 Total Bilirubin 0.3 mg/dL (0.2-1.0) 04/08/20 15:11 AST 15 U/L (15-37) 04/08/20 15:11 ALT 10 U/L (12-78) L 04/08/20 15:11 Alkaline Phosphatase 178 U/L (45-117) H 04/08/20 15:11 Home Medications: Amlodipine Besylate 10 mg PO DAILY 06/17/11 Gemfibrozil 600 mg PO BID 06/17/11 Memantine HCl [Namenda] 10 mg PO BID 06/17/11 Ferrous Gluconate 324 mg PO BID 30 Days #60 tablet 03/05/18 Acetaminophen [Tylenol Suppository] 650 mg RECT Q4HP PRN 04/09/20 Acetaminophen [Tylenol] 2 tab PO Q6H PRN 04/09/20 Apixaban [Eliquis] 5 mg PO BID 04/09/20 Benzonatate [Tessalon Perle] 200 mg PO Q8H PRN 04/09/20 Bisacodyl [Dulcolax] 10 mg RC DAILY PRN 04/09/20 Calcitriol [Rocaltrol] 0.25 cap PO M,W,F 04/09/20 Calcium Acetate 667 mg PO TID 04/09/20 Cholecalciferol (Vitamin D3) [Vitamin D3] 5,000 unit PO DAILY 04/09/20 Clonidine HCl [Catapres] 0.1 mg PO Q6H PRN 04/09/20 Diltiazem HCl [Diltiazem 24Hr Cd] 120 mg PO DAILY 04/09/20 Donepezil HCl 10 mg PO DAILY 04/09/20 Doxepin HCl 2 mg PO BID 04/09/20 Epoetin [Procrit] 1,000 unit SQ 1X 04/09/20 Hyoscyamine Sulfate 0.125 mg SL Q4H PRN 04/09/20 Hyoscyamine Sulfate [Levsin] 2 tab SL Q4H 04/09/20 Isosorbide Dinitrate 40 mg PO DAILY 04/09/20 LORazepam [Ativan*] 1 tab PO Q2H PRN 04/09/20 Lidocaine [Aspercreme Lidocaine] 1 patch TOP Q12HP PRN 04/09/20 Morphine Sulfate/Pf [Morphine 1 mg/2 ml Syringe] 1 ml PO Q1H PRN 04/09/20 Na Bicarb Tab [Sodium Bicarb 325 MG Tab*] 650 tab PO QID 04/09/20 Ondansetron [Zofran] 4 mg PO DAILY PRN 04/09/20 Promethazine HCl 25 mg PO Q4H 04/09/20 Sevelamer Carbonate [Renvela] 800 mg PO TID 04/09/20 Spironolactone [Aldactone] 25 mg PO DAILY 04/09/20 Tramadol HCl [Ultram] 50 mg PO BID 04/09/20 carvediloL [Carvedilol] 6.25 mg PO BID 04/09/20 cilostazoL [Cilostazol] 100 mg PO BID 04/09/20 cloNIDine [Clonidine] 1 each TOP SEECOM 04/09/20 Diet: Renal Activity: Non-weight bearing Followup: NONE,NONE [Primary Care Provider] - Time spent managing pt's care (in minutes): 75
--- NOTE | 2020-04-10 11:07 | EKG ---
Test Date: 2020-04-08 Test Time: 15:21:52 Staff Engineer: DEAN MEASUREMENT RESULTS: Intervals: Rate: 63 DC: 138 QRSD: 90 QT: 394 QTc: 403 [place]: P: 58 DC: 138 QRS: -43 T: 31 INTERPRETIVE STATEMENTS: Normal sinus rhythm Left axis deviation Septal infarct, age undetermined Abnormal ECG Compared to ECG 04/07/2020 14:25:29 Left-axis deviation now present Myocardial infarct finding now present Atrial premature complex(es) no longer present Left anterior fascicular block no longer present Left ventricular hypertrophy no longer present Electronically Signed On 04-10-20 11:05:13 TELEPHONE SOLICITOR SUPERVISOR by Ehsan Bettencourt
== END 2020-04-10 07:13 | disposition short-term general hospital (02) | DRG 299 ==
LOC: ER 14:14 → ERHOLD 20:29 → 2ND 23:21 → OBSVTOIN 04-09 10:45
PROVIDERS: ADMIT Internal Medicine; ATTEND Internal Medicine
DX: E11.51 Type 2 diabetes mellitus with diabetic peripheral angiopathy without gangrene (principal); N18.6 End stage renal disease; I12.0 Hypertensive chronic kidney disease with stage 5 chronic kidney disease or end stage renal disease; I70.202 Unspecified atherosclerosis of native arteries of extremities, left leg; E11.22 Type 2 diabetes mellitus with diabetic chronic kidney disease; D63.1 Anemia in chronic kidney disease; K21.9 Gastro-esophageal reflux disease without esophagitis; I99.8 Other disorder of circulatory system; E78.5 Hyperlipidemia, unspecified; E87.5 Hyperkalemia; Z66 Do not resuscitate; Z79.84 Long term (current) use of oral hypoglycemic drugs; Z79.899 Other long term (current) drug therapy; Z90.710 Acquired absence of both cervix and uterus; Z79.01 Long term (current) use of anticoagulants; Z79.52 Long term (current) use of systemic steroids; Z51.5 Encounter for palliative care; Z20.822 Contact with and (suspected) exposure to COVID-19
CPT/HCPCS: 0240U; 36415; 51702; 70450; 80048; 80053; 80076; 83735; 83880; 84484; 85025; 85610; 85730; 93005; 93926; 93971; 96365; 96366; 96374; 96375; 99284; 99285; J1170; J1644; J2270; J2405; J7030